=== PATIENT | female | born 1965 | race Caucasian/White ===

== ENCOUNTER 2024-10-01 08:18 | Outpatient (AMB) | payer BC, SELFPAY ==
--- NOTE | 2024-10-01 08:28 | A.OFFVIS_ITS ---
Vital Signs 10/01/24 08:39 Height 5 ft 1 in Weight 225 lb 15.581 oz BMI 42.7 BP 124/90 H Blood Pressure Location Lt brachial Position Sitting Pulse 85 Pulse Source Pulse Oximeter Pulse Oximetry (%) 95 Oxygen Delivery Method Room Air Intake Visit Reasons: PSA/ATC med rec recieved Intake Note: Patient presents for PSA. Enbrel is working and scalp is clear. Pain in joints are under control Allergies No Known Allergies Allergy (Verified 10/01/24 08:35) HPI HPI PSA/ATC med rec recieved: Details: Well on current regimen. No recent flares or infections. PFSH Surgical History (Updated 10/01/24 @ 08:37 by SONIA Deshpande) H/O colectomy Family History (Updated 10/01/24 @ 08:38 by SONIA Deshpande) Father Cancer Mother Kidney failure Social History (Updated 10/01/24 @ 08:39 by SONIA Deshpande) Household Members: None Housing: House Alcohol intake: current Comment: OCC Patient Tobacco Use Status: Never used Tobacco Review of Systems Const All systems reviewed & are unremarkable except as noted in HPI and below Physical Exam Vital Signs: Last Vital Signs Pulse 85 10/01/24 08:39 BP 124/90 H 10/01/24 08:39 Pulse Ox 95 10/01/24 08:39 Oxygen Delivery Method Room Air 10/01/24 08:39 BMI result Body Mass Index 42.7 Const Other: General: Comfortable CVS: RRR Respiratory: clear to auscultation bilaterally. Good respiratory effort Skin: No lesions seen MSK: No tenderness of any joints. No synovitis. She has reduced mobility of bilateral wrists. Good range of motion of shoulders and elbows. Knee flexion right is 80 degrees and left is 90. Bilateral hypertrophy noted on knees. Reduced external rotation of bilateral hips. Assessment & Plan Assessment & Plan (1) Psoriatic arthritis: Comment: She has history of secondary treatment failure on Humira. Currently on Enbrel. In remission on Enbrel. Psoriasis and psoriatic arthritis is controlled. Code(s): L40.50 - Arthropathic psoriasis, unspecified Category: Medical Plan: Labs for disease and drug monitoring of high-risk medication ordered this visit. Patient prefers to do labs at a facility near her home. Continue Enbrel weekly subcutaneous injection autoinjector Immunizations: Patient will get flu shot and COVID-19 booster at her local pharmacy Return to clinic in 3 months (2) Other fpc (current) drug therapy: Code(s): Z79.899 - Other fpc (current) drug therapy Category: Medical Plan: See above Orders: Orders C Reactive Protein Today L40.50 - Arthropathic psoriasis, unspecified, Z79.899 - Other fpc (current) drug therapy T Spot TB Today L40.50 - Arthropathic psoriasis, unspecified, Z79.899 - Other intermodal customer service (current) drug therapy Complete Blood Count Auto Diff Today L40.50 - Arthropathic psoriasis, unspecified, Z79.899 - Other fpc (current) drug therapy Creatinine Today L40.50 - Arthropathic psoriasis, unspecified, Z79.899 - Other fpc (current) drug therapy Erythrocyte Sedimentation Rate Today L40.50 - Arthropathic psoriasis, unspecified, Z79.899 - Other fpc (current) drug therapy Alanine Aminotransferase 12/30/24 L40.50 - Arthropathic psoriasis, unspecified, Z79.899 - Other intermodal customer service (current) drug therapy Alanine Aminotransferase 03/25/26 L40.50 - Arthropathic psoriasis, unspecified, Z79.899 - Other intermodal customer service (current) drug therapy Erythrocyte Sedimentation Rate 12/30/24 L40.50 - Arthropathic psoriasis, unspecified, Z79.899 - Other fpc (current) drug therapy Erythrocyte Sedimentation Rate 06/28/25 L40.50 - Arthropathic psoriasis, unspecified, Z79.899 - Other fpc (current) drug therapy Erythrocyte Sedimentation Rate 12/25/25 L40.50 - Arthropathic psoriasis, unspecified, Z79.899 - Other fpc (current) drug therapy Erythrocyte Sedimentation Rate 06/23/26 L40.50 - Arthropathic psoriasis, unspecified, Z79.899 - Other fpc (current) drug therapy Aspartate Amino Transferase 03/30/25 L40.50 - Arthropathic psoriasis, unspecified, Z79.899 - Other intermodal customer service (current) drug therapy Aspartate Amino Transferase 06/28/25 L40.50 - Arthropathic psoriasis, unspecified, Z79.899 - Other intermodal customer service (current) drug therapy Aspartate Amino Transferase 09/26/25 L40.50 - Arthropathic psoriasis, unspecified, Z79.899 - Other intermodal customer service (current) drug therapy Aspartate Amino Transferase 12/25/25 L40.50 - Arthropathic psoriasis, unspecified, Z79.899 - Other fpc (current) drug therapy Aspartate Amino Transferase 03/25/26 L40.50 - Arthropathic psoriasis, unspecified, Z79.899 - Other fpc (current) drug therapy Aspartate Amino Transferase 06/23/26 L40.50 - Arthropathic psoriasis, u nspecified, Z79.899 - Other fpc (current) drug therapy C Reactive Protein 12/30/24 L40.50 - Arthropathic psoriasis, unspecified, Z79.899 - Other intermodal customer service (current) drug therapy C Reactive Protein 03/30/25 L40.50 - Arthropathic psoriasis, unspecified, Z79.899 - Other intermodal customer service (current) drug therapy C Reactive Protein 12/25/25 L40.50 - Arthropathic psoriasis, unspecified, Z79.899 - Other intermodal customer service (current) drug therapy C Reactive Protein 03/25/26 L40.50 - Arthropathic psoriasis, unspecified, Z79.899 - Other fpc (current) drug therapy Complete Blood Count Auto Diff Today L40.50 - Arthropathic psoriasis, unspecified, Z79.899 - Other fpc (current) drug therapy Complete Blood Count Auto Diff 12/30/24 L40.50 - Arthropathic psoriasis, unspecified, Z79.899 - Other fpc (current) drug therapy Complete Blood Count Auto Diff 12/25/25 L40.50 - Arthropathic psoriasis, unspecified, Z79.899 - Other intermodal customer service (current) drug therapy Complete Blood Count Auto Diff 06/23/26 L40.50 - Arthropathic psoriasis, unspecified, Z79.899 - Other intermodal customer service (current) drug therapy Creatinine 12/30/24 L40.50 - Arthropathic psoriasis, unspecified, Z79.899 - Other intermodal customer service (current) drug therapy Creatinine 06/28/25 L40.50 - Arthropathic psoriasis, unspecified, Z79.899 - Other fpc (current) drug therapy Creatinine 12/25/25 L40.50 - Arthropathic psoriasis, unspecified, Z79.899 - Other intermodal customer service (current) drug therapy Creatinine 03/25/26 L40.50 - Arthropathic psoriasis, unspecified, Z79.899 - Other intermodal customer service (current) drug therapy Creatinine 06/23/26 L40.50 - Arthropathic psoriasis, unspecified, Z79.899 - Other intermodal customer service (current) drug therapy Alanine Aminotransferase Today L40.50 - Arthropathic psoriasis, unspecified, Z79.899 - Other intermodal customer service (current) drug therapy Aspartate Amino Transferase Today L40.50 - Arthropathic psoriasis, unspecified, Z79.899 - Other fpc (current) drug therapy Hepatitis B,C Profile Today L40.50 - Arthropathic psoriasis, unspecified, Z79.899 - Other intermodal customer service (current) drug therapy Alanine Aminotransferase Today L40.50 - Arthropathic psoriasis, unspecified, Z79.899 - Other fpc (current) drug therapy Alanine Aminotransferase 03/30/25 L40.50 - Arthropathic psoriasis, unspecified, Z79.899 - Other intermodal customer service (current) drug therapy Alanine Aminotransferase 06/28/25 L40.50 - Arthropathic psoriasis, unspecified, Z79.899 - Other intermodal customer service (current) drug therapy Alanine Aminotransferase 09/26/25 L40.50 - Arthropathic psoriasis, unspecified, Z79.899 - Other fpc (current) drug therapy Alanine Aminotransferase 12/25/25 L40.50 - Arthropathic psoriasis, unspecified, Z79.899 - Other intermodal customer service (current) drug therapy Alanine Aminotransferase 06/23/26 L40.50 - Arthropathic psoriasis, unspecified, Z79.899 - Other intermodal customer service (current) drug therapy Erythrocyte Sedimentation Rate Today L40.50 - Arthropathic psoriasis, unspecified, Z79.899 - Other fpc (current) drug therapy Erythrocyte Sedimentation Rate 03/30/25 L40.50 - Arthropathic psoriasis, unspecified, Z79.899 - Other fpc (current) drug therapy Erythrocyte Sedimentation Rate 09/26/25 L40.50 - Arthropathic psoriasis, unspecified, Z79.899 - Other fpc (current) drug therapy Erythrocyte Sedimentation Rate 03/25/26 L40.50 - Arthropathic psoriasis, unspecified, Z79.899 - Other fpc (current) drug therapy Aspartate Amino Transferase Today L40.50 - Arthropathic psoriasis, unspecified, Z79.899 - Other fpc (current) drug therapy Aspartate Amino Transferase 12/30/24 L40.50 - Arthropathic psoriasis, unspecified, Z79.899 - Other intermodal customer service (current) drug therapy C Reactive Protein Today L40.50 - Arthropathic psoriasis, unspecified, Z79.899 - Other intermodal customer service (current) drug therapy C Reactive Protein 06/28/25 L40.50 - Arthropathic psoriasis, unspecified, Z79.899 - Other intermodal customer service (current) drug therapy C Reactive Protein 09/26/25 L40.50 - Arthropathic psoriasis, unspecified, Z79.899 - Other fpc (current) drug therapy C Reactive Protein 06/23/26 L40.50 - Arthropathic psoriasis, unspecified, Z79.899 - Other fpc (current) drug therapy Complete Blood Count Auto Diff 03/30/25 L40.50 - Arthropathic psoriasis, unspecified, Z79.899 - Other intermodal customer service (current) drug therapy Complete Blood Count Auto Diff 06/28/25 L40.50 - Arthropathic psoriasis, unspecified, Z79.899 - Other intermodal customer service (current) drug therapy Complete Blood Count Auto Diff 09/26/25 L40.50 - Arthropathic psoriasis, unspecified, Z79.899 - Other intermodal customer service (current) drug therapy Complete Blood Count Auto Diff 03/25/26 L40.50 - Arthropathic psoriasis, unspecified, Z79.899 - Other intermodal customer service (current) drug therapy Creatinine Today L40.50 - Arthropathic psoriasis, unspecified, Z79.899 - Other intermodal customer service (current) drug therapy Creatinine 03/30/25 L40.50 - Arthropathic psoriasis, unspecified, Z79.899 - Other intermodal customer service (current) drug therapy Creatinine 09/26/25 L40.50 - Arthropathic psoriasis, unspecified, Z79.899 - Oth er intermodal customer service (current) drug therapy Medications: New etanercept (Enbrel SureClick) Inject SC weekly 50 mg subcut QWEEK 4 mL 2RF Coding Level of Care Code Est Pt Level 4 (44425) Complex EM visit Add On G2211 Diagnoses Psoriatic arthritis L40.50 Other intermodal customer service (current) drug therapy Z79.899
[2024-10-01 08:39] VITALS: BP 124/90; PULSE 85; O2SAT 95; BMI 42.7
== END 2024-10-01 09:06 | disposition home or self-care (01) ==
PROVIDERS: PCP Hospitalist; Visit Provider Internal Medicine Rheumatology
DX: L40.50 Arthropathic psoriasis, unspecified (principal); Z79.899 Other long term (current) drug therapy
CPT/HCPCS: 99214

== ENCOUNTER 2024-12-31 08:12 | Outpatient (AMB) | payer BC, SELFPAY ==
[2024-12-31 08:15] VITALS: BP 110/80; PULSE 93; O2SAT 97; BMI 41.2
--- NOTE | 2024-12-31 08:15 | MHC.OFFVIS ---
Vital Signs 12/31/24 08:15 Height 5 ft 1 in Weight 218 lb 4.122 oz BMI 41.2 BP 110/80 Pulse 93 Pulse Source Pulse Oximeter Pulse Oximetry (%) 97 Oxygen Delivery Method Room Air Intake Visit Reasons: 3 mo f/u Intake Note: Patient presents for PSA follow up. Crimper Operator Required: No Accompanied by: Self / Same As Patient Allergies No Known Allergies Allergy (Verified 12/31/24 08:20) HPI HPI 3 mo f/u: Details: Doing well. NO joint swelling, stiffness or infections. PFSH Surgical History H/O colectomy Family History Father Cancer Mother Kidney failure Social History Household Members: None Housing: House Alcohol intake: current Comment: OCC Patient Tobacco Use Status: Never used Tobacco Review of Systems Const All systems reviewed & are unremarkable except as noted in HPI and below Physical Exam Vital Signs: Last Vital Signs Pulse 93 12/31/24 08:15 BP 110/80 12/31/24 08:15 Pulse Ox 97 12/31/24 08:15 Oxygen Delivery Method Room Air 12/31/24 08:15 BMI result Body Mass Index 41.2 Const Other: General: Comfortable CVS: RRR Respiratory: clear to auscultation bilaterally. Good respiratory effort Skin: No lesions seen MSK: No tenderness of any joints. No synovitis. She has reduced mobility of bilateral wrists. Good range of motion of shoulders and elbows. Knee flexion right is 80 degrees and left is 90. Bilateral hypertrophy noted on knees. Reduced external rotation of bilateral hips. Assessment & Plan Assessment & Plan (1) Psoriatic arthritis: Comment: She has history of secondary treatment failure on Humira. Currently on Enbrel. In remission on Enbrel. Psoriasis and psoriatic arthritis is controlled. Code(s): L40.50 - Arthropathic psoriasis, unspecified Category: Medical Plan: Labs for disease and drug monitoring of high-risk medication done last week. Requested lab results from [facility] Continue Enbrel weekly subcutaneous injection autoinjector Return to clinic in 3 months (2) Other long-term (current) drug therapy: Code(s): Z79.899 - Other long-term (current) drug therapy Category: Medical Plan: See above Medications: Refilled etanercept Inject once weekly subcutaneous 50 mg subcut QWEEK 4 mL 2RF Coding Level of Care Code Est Pt Level 4 (48598) Complex EM visit Add On G2211 Diagnoses Psoriatic arthritis L40.50 Other intermission coordinator (current) drug therapy Z79.899
--- OUTSIDE RECORDS SUMMARY | 2024-12-31 08:29 | XMS_ITS ---
Author Organization [facility] Address Unknown Allergies, Adverse Reactions, Alerts Substance Reaction Status Noted Date Resolved Date Ciprofloxacin active 01/08/2016 Problems Problem Status Start Date End Date ENTEROCOLITIS DUE TO CLOSTRI DIUM DIFFICILE (Primary) (A04.7 - ICD-10-CM) ACTIVE 01/04/2016 ACQUIRED ABSENCE OF OTHER SP ECIFIED PARTS OF DIGESTIVE TRACT (Z90.49 - ICD-10-CM) ACTIVE 01/04/2016 ENCOUNTER FOR OTHER SPECIFIE D SURGICAL AFTERCARE (Z48.89 - ICD-10-CM) ACTIVE 01/04/2016 UNSPECIFIED LACK OF COORDINATION (R27.9 - ICD-10-CM) A CTIVE 01/04/2016 DIFFICULTY IN WALKING, NOT E LSEWHERE CLASSIFIED (R26.2 - ICD-10-CM) ACTIVE 01/04/2016 URINARY TRACT INFECTION, SIT E NOT SPECIFIED (N39.0 - ICD-10-CM) ACTIVE 01/17/2016 ACUTE SYSTOLIC (CONGESTIVE) HEART FAILURE (I50.21 - ICD-10-CM) ACTIVE 01/04/2016 MAJOR DEPRESSIVE DISORDER, R ECURRENT SEVERE WITHOUT PSYCHOTIC FEATURES (F33.2 - ICD-10-CM) ACTIVE 01/04/2016 Encounters Encounter Performer Performer Role Encounter Diagnoses Location Date Discharge - Discharged / Transferred to home under care of organized home health service organization - Private home/apt. with home health services [facility] 01/04/2016 03:00 pm EST - 01/30/2016 03:10 pm EDT Immunizations Vaccine Date Influenza Pneumococcal Polysaccharide Vaccine (PPS V23) Social History
--- OUTSIDE RECORDS SUMMARY | 2024-12-31 08:30 | XMS_ITS | Patient Health Record ---
Author Organization [facility] Address [address] 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 Name Role Phone MARY JOYCE Primary Care Provider JimmyemilyToro toledo Unavailable [phone] Allergies Allergen (clinical drug ingredient) Drug/Non Drug Allergy documented on EMR Reaction Allergy Type Onset Date Status NKDA (uncoded) Unknown Allergy Activ e Results Component Value Reference Range Notes TSH+Free T4 Reviewed date:11/28/2024 02:49:19 PM Interpretation: Performing Lab:[facility] [place], [address], [place], Phone - [phone], Director - [facility] Notes/Report: Test(s) 332502-Ssvqcfnmouody Acid, Serum was developed and its performance characteristics determined by [facility]. It has not been cleared or approved by the Food and Drug Administration. TSH-ICMA 1.3 Reference Range: Non- Adult 0.450-4.500 First Trimester 0.100-4.000 Second Trimester 0.200-4.000 Third Trimester 0.300-4.500 Free T4 by Dialysis/Dry Chain Worker 1.5 This test was developed and its performance characteristics determined by [facility]. It has not been cleared or approved by the Food and Drug Administration. Reference Range: Pubertal Children and Adults: 0.8 - 1.7 Homocyst(e)ine-768701 Reviewed date:11/28/2024 02:49:01 PM Interpretation: Performing Lab:[facility] [place], [address], [place], Phone - [phone], Director - Nuvia Notes/Report: Test(s) 013746-Yabfezmzfzycv Acid, Serum was developed and its performance characteristics determined by [facility]. It has not been cleared or approved by the Food and Drug Administration. Homocyst(e)ine 15.0 0.0-14.5 umol/L Methylmalonic Acid, Serum-70 6961 Reviewed date:11/28/2024 02:49:10 PM Interpretation: Performing Lab:[facility] [address], Phone - [phone], Director - [facility] Notes/Report: Test(s) 597086-Qseytvtkahvmf Acid, Serum was developed and its performance characteristics determined by [facility]. It has not been cleared or approved by the Food and Drug Administration. Methylmalonic Acid, Serum 163 0-378 nmol/L Hemoglobin R7e-689206 Reviewed date:11/28/2024 02:49:30 PM Interpretation: Performing Lab:[facility] [address], Phone - [phone], Director - [facility] Notes/Report: Test(s) 353540-Hpzzntkgbfdjp Acid, Serum was developed and its performance characteristics determined by [facility]. It has not been cleared or approved by the Food and Drug Administration. Hemoglobin A1c 5.7 4.8-5.6 % . Prediabetes: 5.7 - 6.4 Diabetes: >6.4 Glycemic control for adults with diabetes: <7.0 Vitamin B12 and Folate-26582 0 Reviewed date:11/28/2024 02:48:50 PM Interpretation: Performing Lab:[facility] [address], Phone - [phone], Director - [facility] Notes/Report: Test(s) 926679-Afhfsxloyjevk Acid, Serum was developed and its performance characteristics determined by [facility]. It has not been cleared or approved by the Food and Drug Administration. Vitamin B12 574 777-6848 pg/mL Folate (Folic Acid), Serum 14.2 >3.0 ng/mL A serum folate concentration of less than 3.1 ng/mL is considered to represent clinical deficiency. Lipid Panel-828364 (Not yet reviewed by provider) Interpretation: Performing Lab:[facility] [address], Phone - [phone], Director - [facility] Notes/Report: Test(s) 398567-Epcgpqdnaoxxr Acid, Serum was developed and its performance characteristics determined by [facility]. It has not been cleared or approved by the Food and Drug Administration. Cholesterol, Total 262 100-199 mg/dL Triglycerides 133 0-149 mg/dL HDL Cholesterol 78 >39 mg/dL VLDL Cholesterol Delio 23 5-40 mg/dL LDL Chol Calc ([facility]) 161 0-99 mg/dL MG MAMMO DIGITAL SCREENING W JESU ANGELICA Reviewed date:12/10/2024 03:24:59 PM Interpretation: Performing Lab: Notes/Report: Note See Note [facility], a member of [facility] Patient Name: MARY ALICE BERNAL Date of : 1965 Reason for Exam: Exam Date: 12/10/2024 [id number] EST Report Status: Final Ordering Provider: SELF REFERRAL [facility]PL PCP: MARY JOYCE CLINICAL: 59 years o ld, Female, routine annual exam. COMPARISON: 4, 11/23/2022, 11/17/2021, 11/16/2020 and 03/04/2019 TECHNIQUE: Bilateral MLO and CC views were obtained digitally with 3-D mammogram (digital breast tomosynthesis). Computer-aided detection was utilized in evaluation of this exam (CAD). FINDINGS: There is no evidence of suspicious mass or architectural distortion. No worrisome calcifications are evident. There has been no significant change from prior exam(s). BREAST DENSITY: A - The breasts are almost entirely fatty. IMPRESSION: No evidence of breas t malignancy. BI-RADS CATEGORY: 1 - NEGATIVE RECOMMENDATION: Screening bilateral mammogram is recommended in 1 year. Mammo Location: [facility], [address] [place] [address], [address], . -------- FINAL REPOR T -------- Dictated By: Jessica Veliz Dictated Date: 12/10/2024 11:39 ET Assigned Physician: Jessica Veliz Reviewed and Electronically Signed By: Jessica Veliz Signed Date: 025 11:41 ET Workstation ID: [id number] Transcribed By: Self Edit Transcribed Date: 12/10/2024 11:39 ET Albumin/Creatinine Ratio,Uri ne-122286 Reviewed date:03/22/2024 02:34:49 PM Interpretation: Performing Lab:[facility] [place], [address] [place] [address], Phone - [phone], Director - MDRajy Notes/Report: Creatinine, Urine 84.3 Not Estab. mg/dL Albumin, Urine 7.3 Not Estab. ug/mL Alb/Creat Ratio 9 0-29 mg/g creat Normal: 0 - 29 Moderately increased: 30 - 300 Severely increased: >300 Comp. Metabolic Panel (14)-3 24116 Reviewed date:03/25/2024 06:03:26 AM Interpretation: Performing Lab:[facility] [place], [address] [place] [address], Phone - [phone], Director - Damariy Notes/Report: Glucose 95 70-99 mg/dL BUN 16 6-24 mg/dL Creatinine 1.06 0.57-1.00 mg/dL eGFR 61 >59 mL/min/1.73 BUN/Creatinine Ratio 15 9-23 Sodium 140 134-144 mmol/L Potassium 4.3 3.5-5.2 mmol/L Chloride 100 96-106 mmol/L Anion Gap 17.0 10.0-18.0 mmol/L Carbon Dioxide, Total 23 20-29 mmol/L Calcium 9.5 8.7-10.2 mg/dL Protein, Total 7.2 6.0-8.5 g/dL Albumin 4.5 3.8-4.9 g/dL Globulin, Total 2.7 1.5-4.5 g/dL A/G Ratio 1.7 1.2-2.2 Bilirubin, Total 0.4 0.0-1.2 mg/dL Alkaline Phosphatase 101 44-121 IU/L AST (SGOT) 23 0-40 IU/L ALT (SGPT) 25 0-32 IU/L LP+Non-HDL Cholesterol-21187 5 Reviewed date:03/25/2024 10:41:09 AM Interpretation: Performing Lab:[facility] [place], [facility], Phone - [phone], Director - Damariy Notes/Report: Cholesterol, Total 265 100-199 mg/dL Triglycerides 116 0-149 mg/dL HDL Cholesterol 100 >39 mg/dL VLDL Cholesterol Delio 20 5-40 mg/dL LDL Chol Calc (NIH) 145 0-99 mg/dL Non-HDL Cholesterol 165 0-129 mg/dL Albumin/Creatinine Ratio,Uri ne-332209 Reviewed date:03/24/2024 09:35:28 PM Interpretation: Performing Lab:[facility] [place], [address] [place] [address], Phone - [phone], Director - MDJodry Notes/Report: Creatinine, Urine TNP Test not p erformed. No specimen received. Albumin, Urine TNP Test not perf ormed Hgb A1c with eAG Estimation- 228651 Reviewed date:03/25/2024 10:39:16 AM Interpretation: Performing Lab:[facility], [address] [place] [address], Phone - [phone], Director - MDJodry Notes/Report: Hemoglobin A1c 5.9 4.8-5.6 % . Prediabetes: 5.7 - 6.4 Diabetes: >6.4 Glycemic control for adults with diabetes: <7.0 Estim. Avg Glu (eAG) 123 CBC, Platelet, No Differenti al-660230 Reviewed date:03/25/2024 10:16:58 AM Interpretation: Performing Lab:[facility] [place], [address] [place] [address], Phone - [phone], Director - MDJodry Notes/Report: WBC 6.7 3.4-10.8 x10E3/uL RBC 4.94 3.77-5.28 x10E6/uL Hemoglobin 12.7 11.1-15.9 g/dL Hematocrit 39.0 34.0-46.6 % MCV 79 79-97 fL MCH 25.7 26.6-33.0 pg MCHC 32.6 31.5-35.7 g/dL RDW 16.1 11.7-15.4 % Platelets 227 150-450 x10E3/uL Ferritin-254539 Reviewed date:03/25/2024 06:01:38 AM Interpretation: Performing Lab:[facility] [place], [address] [place] [address], Phone - [phone], Director - MDJodry Notes/Report: Ferritin 24 15-150 ng/mL Request Problem TNP Test not performed. No specimen received. TEST: [id number] Albumin/Creatinine Ratio,Urine Iron and TIBC-385203 Reviewed date:03/25/2024 06:01:49 AM Interpretation: Performing Lab:[facility] [place], [address], [place], Phone - [phone], Director - Nuvia Notes/Report: Iron Bind.Cap.(TIBC) 407 250-450 ug/dL UIBC 252 131-425 ug/dL Iron 155 27-159 ug/dL Iron Saturation 38 15-55 % Reason For Referral No Information Medications Medication SIG (Take, Route, Frequency, Duration) Notes Start Date End Date Status Cinnamon Plus Chromium 200-1000 MCG-MG as directed Orally 02/07/2018 Active Niacin 500 MG 1 tablet with food Orally Once a day for 30 day(s) 02/07/2018 Not-Taking Calcium 600 MG 1 tablet with meals Orally Twice a day for 30 day(s) 02/07/2018 Active Garcinia Cambogia-Chromium 500-200 MG-MCG as directed Orally 02/07/2018 Not-Takin g Bactrim DS 800-160 MG 1 tablet Orally Tw ice a day for 3 day(s) 04/09/2021 Not-Taking Enbrel 50 MG/ML 1 mL Subcutaneous Active Humira Not-Taking Sertraline HCl 25 MG TAKE 1 TABLET BY [facility] ONCE DAILY WITH 50 MG TABLET 90 for 90 Active Sertraline HCl 50 MG TAKE 1 TABLET ONCE DAILY for 90 Active Ondansetron 4 MG 1 tablet on the tong ue and allow to dissolve Orally Once a day as needed for 90 days 02/07/2018 Active Mometasone Furoate 0.1 % 1 application Externally Once a day for 30 day(s) Active Hydrocortisone 2.5 % 1 application Externally Twice a day for 30 day(s) 10/27/2020 Active Magnesium Oxide 400 MG 1 tablet as neede d Orally Once a day for 30 day(s) 02/07/2018 Active Folic Acid 400 MCG 1 tablet Orally Once a day for 30 day(s) 02/07/2018 Active Biotin 5000 MCG 1 capsule Orally Onc e a day for 30 day(s) 02/07/2018 Active Immunizations Vaccine Route Administration Date Status Comme nts COVID Moderna Unknown 11/12/2020 Administered COVID Moderna Unknown 12/10/2020 Administered COVID Moderna Unknown 11/18/2021 Administered Flublok 98162 IM Intramuscular 11/14/2024 Administered Fluzone QD IM Intramuscular 11/21/2022 Administered Influenza, seasonal, injectable, preservative free, 3 yrs and above Unknown 09/20/2017 Administered Tdap Unknown 09/12/2016 Administered Social History Tobacco Use: Social History Observation Description Date Details (start date - stop date) Never Smoker NA - NA Tobacco Use/Smoking Question Answer Notes Are you a nonsmoker Alcohol Screen (Audit-C) Question Answer Notes Did you have a drink containing alcohol in the p ast year? No Points 0 Interpretation Negative Problems Problem Type SNOMED Code ICD Code Onset Dates Problem Status W/U Status Risk Notes Problem Iron deficiency anemia (08300042) Iron deficiency anemia, unspecified (D50.9) Active confirmed Problem Vitamin D deficiency (50964127) Vitamin D deficiency, unspecified (E55.9) Active confirmed Problem Morbid obesity (469482882) Morbid (severe) obesity due to excess calories (E66.01) Active confirmed Problem Mixed hyperlipidemia (045415059) Mixed hyperlipidemia (E78.2) Active confirmed Problem Major depression, single episode (67932036) Major depressive disorder, single episode, unspecified (F32.9) Active confirmed Problem Generalized anxiety disorder (12198930) Generalized anxiety disorder (F41.1) Active confirmed Problem Essential hypertension (68394009) Essential (primary) hypertension (I10) Active confirmed Problem Psoriasis (5899424) Psoriasis, unspecified (L40.9) Active confirmed Problem Idiopathic urticaria (74989913) Idiopathic urticaria (L50.1) Active confirmed Problem History of excision of intestinal structure (663080840) Acquired absence of other specified parts of digestive tract (Z90.49) Active confirmed Vital Signs Heart Rate 98 /min 11/14/2024 Temperature 97.4 degrees Fahrenheit 11/14/2024 Oximetry 97 % 11/14/2024 Blood pressure diastolic 78 mm Hg 11/14/2024 Height 62 in 11/14/2024 Blood pressure systolic 120 mm Hg 11/14/2024 Weight 222.2 lbs 11/14/2024 BMI 40.64 kg/m2 11/14/2024 Encounters Encounter Location Date Provider Diagnosis [facility] [address] [address] 03/22/2024 MARY JOYCE Essential (primary) hypertension I10 ; Major depressive disorder, single episode, unspecified F32.9 ; Psoriasis, unspecified L40.9 ; Morbid (severe) obesity due to excess calories E66.01 ; Impaired fasting glucose R73.01 and Mixed hyperlipidemia E78.[address] [address] 11/14/2024 [facility] Essential (primary) hypertension I10 ; Annual visit for general adult medical examination without abnormal findings Z00.00 ; Morbid (severe) obesity due to excess calories E66.01 ; Major depressive disorder, single episode, unspecified F32.9 ; Impaired fasting glucose R73.01 ; Mixed hyperlipidemia E78.2 ; Psoriasis, unspecified L40.9 ; Fatigue, unspecified type R53.83 ; Encounter for immunization Z23 and Other specified abdominal hernia without obstruction or gangrene K45.[address] [address] 10/21/[address] [address] 10/21/[address] [address] 11/15/2024 [facility] Assessments Encounter Date Diagnosis (ICD Code) Assessment Notes Treatment Notes Treatment Clinical Notes Section Notes 03/22/2024 Major depressive disorder, single episode, unspecified (ICD-10 - F32.9) Ms. Bernal is a 58 year old lady with depression and diverticulitis here for follow up. Plan is as follows Hypertension. Blood pressure well controlled on diet Morbid obesity. Advised dietary restrictions and regimental exercise. Goal is to lose 5-6 lbs a month. REAGAN/MDD. Mood stable on current regimen. Iron deficiency anemia. Take iron supplements atleast once a day. Impaired fasting glucose. A1c is 5.9. Diet restrictions discussed and encouraged to lose weight Mixed hyperlipidemia. Total cholesterol is 265, triglycerides is 116, HDL is 100 and LDL is 145. Diet changes discussed with the patient. Recheck lipid panel in 6 months Psoriatic arthritis. She follows up with Dr. Jimenes and it is under control. Scribe services used to formulate this note under HIPAA compliance and under [place] law mandated for scribe services. Patient aware of service. Verbal consent and written consent taken from the patient. Patient understands and verbalizes understanding of the scribes services and all questions answered regarding scribes services. Patient agrees to use of scribes services. 03/22/2024 Essential (primary) hypertension (ICD-10 - I10) Ms. Bernal is a 58 year old lady with depression and diverticulitis here for follow up. Plan is as follows Hypertension. Blood pressure well controlled on diet Morbid obesity. Advised dietary restrictions and regimental exercise. Goal is to lose 5-6 lbs a month. REAGAN/MDD. Mood stable on current regimen. Iron deficiency anemia. Take iron supplements atleast once a day. Impaired fasting glucose. A1c is 5.9. Diet restrictions discussed and encouraged to lose weight Mixed hyperlipidemia. Total cholesterol is 265, triglycerides is 116, HDL is 100 and LDL is 145. Diet changes discussed with the patient. Recheck lipid panel in 6 months Psoriatic arthritis. She follows up with Dr. Jimenes and it is under control. Scribe services used to formulate this note under HIPAA compliance and under [place] law mandated for scribe services. Patient aware of service. Verbal consent and written consent taken from the patient. Patient understands and verbalizes understanding of the scribes services and all questions answered regarding scribes services. Patient agrees to use of scribes services. 11/14/2024 Essential (primary) hypertension (ICD-10 - I10) Ms. Bernal is a 58 year old lady with depression and diverticulitis here for annual physical examination. Plan is as follows Hypertension. -Blood pressure well controlled on diet. Continue on the same regimen. EKG is done in the office today, HR of 79bpm, Sinus rhythm, No ST elevation/depress ion. No BBB. normal intervals. Morbid obesity. -Advised dietary restrictions and regimental exercise. Goal is to lose 5-6 lbs a month. REAGAN/MDD. -Mood stable on current regimen. She prefers not to increase the dosage now as she would prefer lifetsyle modification first. However, she will update us if no improvement in her mood and then we will adjust medication based on that. Iron deficiency anemia. -Take iron supplements atleast once a day. Check CBC Impaired fasting glucose. - A1c is 5.9. Diet restrictions discussed and encouraged to lose weight. check a1c Mixed hyperlipidemia. - Total cholesterol is 265, triglycerides is 116, HDL is 100 and LDL is 145. Diet changes discussed with the patient. check lipid panell. Psoriatic arthritis. She follows up with Dr. Jimenes and it is under control. fatigue: - we will check bloodwork to r/o seondary causes. Hernia: - She was seen by GI before, U/S has been performed and showed three hernia. Surgery was recommended but she deferred it for now. recommended to touch base with GI surgeon again. She is UTD on vaccinations. Flu vaccine is administered today.She is upcoming Mammogram. DEXA was done in 2022 which it was normal. Screening Bloodwork before next appt General concerns have been discussed I have rendered the services for this patient under direct supervision of Dr. Joyce, who did not see the patient but was available upon request 11/14/2024 Annual visit for general adult medical examination without abnormal findings (ICD-10 - Z00.00) Ms. Bernal is a 58 year old lady with depression and diverticulitis here for annual physical examination. Plan is as follows Hypertension. -Blood pressure well controlled on diet. Continue on the same regimen. EKG is done in the office today, HR of 79bpm, Sinus rhythm, No ST elevation/depress ion. No BBB. normal intervals. Morbid obesity. -Advised dietary restrictions and regimental exercise. Goal is to lose 5-6 lbs a month. REAGAN/MDD. -Mood stable on current regimen. She prefers not to increase the dosage now as she would prefer lifetsyle modification first. However, she will update us if no improvement in her mood and then we will adjust medication based on that. Iron deficiency anemia. -Take iron supplements atleast once a day. Check CBC Impaired fasting glucose. - A1c is 5.9. Diet restrictions discussed and encouraged to lose weight. check a1c Mixed hyperlipidemia. - Total cholesterol is 265, triglycerides is 116, HDL is 100 and LDL is 145. Diet changes discussed with the patient. check lipid panell. Psoriatic arthritis. She follows up with Dr. Jimenes and it is under control. fatigue: - we will check bloodwork to r/o seondary causes. Hernia: - She was seen by GI before, U/S has been performed and showed three hernia. Surgery was recommended but she deferred it for now. recommended to touch base with GI surgeon again. She is UTD on vaccinations. Flu vaccine is administered today.She is upcoming Mammogram. DEXA was done in 2022 which it was normal. Screening Bloodwork before next appt General concerns have been discussed I have rendered the services for this patient under direct supervision of Dr. Joyce, who did not see the patient but was available upon request 11/14/2024 Morbid (severe) obesity due to excess calories (ICD-10 - E66.01) Ms. Bernal is a 58 year old lady with depression and diverticulitis here for annual physical examination. Plan is as follows Hypertension. -Blood pressure well controlled on diet. Continue on the same regimen. EKG is done in the office today, HR of 79bpm, Sinus rhythm, No ST elevation/depress ion. No BBB. normal intervals. Morbid obesity. -Advised dietary restrictions and regimental exercise. Goal is to lose 5-6 lbs a month. REAGAN/MDD. -Mood stable on current regimen. She prefers not to increase the dosage now as she would prefer lifetsyle modification first. However, she will update us if no improvement in her mood and then we will adjust medication based on that. Iron deficiency anemia. -Take iron supplements atleast once a day. Check CBC Impaired fasting glucose. - A1c is 5.9. Diet restrictions discussed and encouraged to lose weight. check a1c Mixed hyperlipidemia. - Total cholesterol is 265, triglycerides is 116, HDL is 100 and LDL is 145. Diet changes discussed with the patient. check lipid panell. Psoriatic arthritis. She follows up with Dr. Jimenes and it is under control. fatigue: - we will check bloodwork to r/o seondary causes. Hernia: - She was seen by GI before, U/S has been performed and showed three hernia. Surgery was recommended but she deferred it for now. recommended to touch base with GI surgeon again. She is UTD on vaccinations. Flu vaccine is administered today.She is upcoming Mammogram. DEXA was done in 2022 which it was normal. Screening Bloodwork before next appt General concerns have been discussed I have rendered the services for this patient under direct supervision of Dr. Joyce, who did not see the patient but was available upon request 03/22/2024 Psoriasis, unspecified (ICD-10 - L40.9) Ms. Bernal is a 58 year old lady with depression and diverticulitis here for follow up. Plan is as follows Hypertension. Blood pressure well controlled on diet Morbid obesity. Advised dietary restrictions and regimental exercise. Goal is to lose 5-6 lbs a month. REAGAN/MDD. Mood stable on current regimen. Iron deficiency anemia. Take iron supplements atleast once a day. Impaired fasting glucose. A1c is 5.9. Diet restrictions discussed and encouraged to lose weight Mixed hyperlipidemia. Total cholesterol is 265, triglycerides is 116, HDL is 100 and LDL is 145. Diet changes discussed with the patient. Recheck lipid panel in 6 months Psoriatic arthritis. She follows up with Dr. Jimenes and it is under control. Scribe services used to formulate this note under HIPAA compliance and under [place] law mandated for scribe services. Patient aware of service. Verbal consent and written consent taken from the patient. Patient understands and verbalizes understanding of the scribes services and all questions answered regarding scribes services. Patient agrees to use of scribes services. 03/22/2024 Morbid (severe) obesity due to excess calories (ICD-10 - E66.01) Ms. Bernal is a 58 year old lady with depression and diverticulitis here for follow up. Plan is as follows Hypertension. Blood pressure well controlled on diet Morbid obesity. Advised dietary restrictions and regimental exercise. Goal is to lose 5-6 lbs a month. REAGAN/MDD. Mood stable on current regimen. Iron deficiency anemia. Take iron supplements atleast once a day. Impaired fasting glucose. A1c is 5.9. Diet restrictions discussed and encouraged to lose weight Mixed hyperlipidemia. Total cholesterol is 265, triglycerides is 116, HDL is 100 and LDL is 145. Diet changes discussed with the patient. Recheck lipid panel in 6 months Psoriatic arthritis. She follows up with Dr. Jimenes and it is under control. Scribe services used to formulate this note under HIPAA compliance and under [place] law mandated for scribe services. Patient aware of service. Verbal consent and written consent taken from the patient. Patient understands and verbalizes understanding of the scribes services and all questions answered regarding scribes services. Patient agrees to use of scribes services. 11/14/2024 Major depressive disorder, single episode, unspecified (ICD-10 - F32.9) Ms. Bernal is a 58 year old lady with depression and diverticulitis here for annual physical examination. Plan is as follows Hypertension. -Blood pressure well controlled on diet. Continue on the same regimen. EKG is done in the office today, HR of 79bpm, Sinus rhythm, No ST elevation/depress ion. No BBB. normal intervals. Morbid obesity. -Advised dietary restrictions and regimental exercise. Goal is to lose 5-6 lbs a month. REAGAN/MDD. -Mood stable on current regimen. She prefers not to increase the dosage now as she would prefer lifetsyle modification first. However, she will update us if no improvement in her mood and then we will adjust medication based on that. Iron deficiency anemia. -Take iron supplements atleast once a day. Check CBC Impaired fasting glucose. - A1c is 5.9. Diet restrictions discussed and encouraged to lose weight. check a1c Mixed hyperlipidemia. - Total cholesterol is 265, triglycerides is 116, HDL is 100 and LDL is 145. Diet changes discussed with the patient. check lipid panell. Psoriatic arthritis. She follows up with Dr. Jimenes and it is under control. fatigue: - we will check bloodwork to r/o seondary causes. Hernia: - She was seen by GI before, U/S has been performed and showed three hernia. Surgery was recommended but she deferred it for now. recommended to touch base with GI surgeon again. She is UTD on vaccinations. Flu vaccine is administered today.She is upcoming Mammogram. DEXA was done in 2022 which it was normal. Screening Bloodwork before next appt General concerns have been discussed I have rendered the services for this patient under direct supervision of Dr. Joyce, who did not see the patient but was available upon request 11/14/2024 Impaired fasting glucose (ICD-10 - R73.01) Ms. Bernal is a 58 year old lady with depression and diverticulitis here for annual physical examination. Plan is as follows Hypertension. -Blood pressure well controlled on diet. Continue on the same regimen. EKG is done in the office today, HR of 79bpm, Sinus rhythm, No ST elevation/depress ion. No BBB. normal intervals. Morbid obesity. -Advised dietary restrictions and regimental exercise. Goal is to lose 5-6 lbs a month. REAGAN/MDD. -Mood stable on current regimen. She prefers not to increase the dosage now as she would prefer lifetsyle modification first. However, she will update us if no improvement in her mood and then we will adjust medication based on that. Iron deficiency anemia. -Take iron supplements atleast once a day. Check CBC Impaired fasting glucose. - A1c is 5.9. Diet restrictions discussed and encouraged to lose weight. check a1c Mixed hyperlipidemia. - Total cholesterol is 265, triglycerides is 116, HDL is 100 and LDL is 145. Diet changes discussed with the patient. check lipid panell. Psoriatic arthritis. She follows up with Dr. Jimenes and it is under control. fatigue: - we will check bloodwork to r/o seondary causes. Hernia: - She was seen by GI before, U/S has been performed and showed three hernia. Surgery was recommended but she deferred it for now. recommended to touch base with GI surgeon again. She is UTD on vaccinations. Flu vaccine is administered today.She is upcoming Mammogram. DEXA was done in 2022 which it was normal. Screening Bloodwork before next appt General concerns have been discussed I have rendered the services for this patient under direct supervision of Dr. Joyce, who did not see the patient but was available upon request 03/22/2024 Impaired fasting glucose (ICD-10 - R73.01) Ms. Bernal is a 58 year old lady with depression and diverticulitis here for follow up. Plan is as follows Hypertension. Blood pressure well controlled on diet Morbid obesity. Advised dietary restrictions and regimental exercise. Goal is to lose 5-6 lbs a month. REAGAN/MDD. Mood stable on current regimen. Iron deficiency anemia. Take iron supplements atleast once a day. Impaired fasting glucose. A1c is 5.9. Diet restrictions discussed and encouraged to lose weight Mixed hyperlipidemia. Total cholesterol is 265, triglycerides is 116, HDL is 100 and LDL is 145. Diet changes discussed with the patient. Recheck lipid panel in 6 months Psoriatic arthritis. She follows up with Dr. Jimenes and it is under control. Scribe services used to formulate this note under HIPAA compliance and under [place] law mandated for scribe services. Patient aware of service. Verbal consent and written consent taken from the patient. Patient understands and verbalizes understanding of the scribes services and all questions answered regarding scribes services. Patient agrees to use of scribes services. 03/22/2024 Mixed hyperlipidemia (ICD-10 - E78.2) Ms. Bernal is a 58 year old lady with depression and diverticulitis here for follow up. Plan is as follows Hypertension. Blood pressure well controlled on diet Morbid obesity. Advised dietary restrictions and regimental exercise. Goal is to lose 5-6 lbs a month. REAGAN/MDD. Mood stable on current regimen. Iron deficiency anemia. Take iron supplements atleast once a day. Impaired fasting glucose. A1c is 5.9. Diet restrictions discussed and encouraged to lose weight Mixed hyperlipidemia. Total cholesterol is 265, triglycerides is 116, HDL is 100 and LDL is 145. Diet changes discussed with the patient. Recheck lipid panel in 6 months Psoriatic arthritis. She follows up with Dr. Jimenes and it is under control. Scribe services used to formulate this note under HIPAA compliance and under [place] law mandated for scribe services. Patient aware of service. Verbal consent and written consent taken from the patient. Patient understands and verbalizes understanding of the scribes services and all questions answered regarding scribes services. Patient agrees to use of scribes services. 11/14/2024 Mixed hyperlipidemia (ICD-10 - E78.2) Ms. Bernal is a 58 year old lady with depression and diverticulitis here for annual physical examination. Plan is as follows Hypertension. -Blood pressure well controlled on diet. Continue on the same regimen. EKG is done in the office today, HR of 79bpm, Sinus rhythm, No ST elevation/depress ion. No BBB. normal intervals. Morbid obesity. -Advised dietary restrictions and regimental exercise. Goal is to lose 5-6 lbs a month. REAGAN/MDD. -Mood stable on current regimen. She prefers not to increase the dosage now as she would prefer lifetsyle modification first. However, she will update us if no improvement in her mood and then we will adjust medication based on that. Iron deficiency anemia. -Take iron supplements atleast once a day. Check CBC Impaired fasting glucose. - A1c is 5.9. Diet restrictions discussed and encouraged to lose weight. check a1c Mixed hyperlipidemia. - Total cholesterol is 265, triglycerides is 116, HDL is 100 and LDL is 145. Diet changes discussed with the patient. check lipid panell. Psoriatic arthritis. She follows up with Dr. Jimenes and it is under control. fatigue: - we will check bloodwork to r/o seondary causes. Hernia: - She was seen by GI before, U/S has been performed and showed three hernia. Surgery was recommended but she deferred it for now. recommended to touch base with GI surgeon again. She is UTD on vaccinations. Flu vaccine is administered today.She is upcoming Mammogram. DEXA was done in 2022 which it was normal. Screening Bloodwork before next appt General concerns have been discussed I have rendered the services for this patient under direct supervision of Dr. Joyce, who did not see the patient but was available upon request 11/14/2024 Psoriasis, unspecified (ICD-10 - L40.9) Ms. Bernal is a 58 year old lady with depression and diverticulitis here for annual physical examination. Plan is as follows Hypertension. -Blood pressure well controlled on diet. Continue on the same regimen. EKG is done in the office today, HR of 79bpm, Sinus rhythm, No ST elevation/depress ion. No BBB. normal intervals. Morbid obesity. -Advised dietary restrictions and regimental exercise. Goal is to lose 5-6 lbs a month. REAGAN/MDD. -Mood stable on current regimen. She prefers not to increase the dosage now as she would prefer lifetsyle modification first. However, she will update us if no improvement in her mood and then we will adjust medication based on that. Iron deficiency anemia. -Take iron supplements atleast once a day. Check CBC Impaired fasting glucose. - A1c is 5.9. Diet restrictions discussed and encouraged to lose weight. check a1c Mixed hyperlipidemia. - Total cholesterol is 265, triglycerides is 116, HDL is 100 and LDL is 145. Diet changes discussed with the patient. check lipid panell. Psoriatic arthritis. She follows up with Dr. Jimenes and it is under control. fatigue: - we will check bloodwork to r/o seondary causes. Hernia: - She was seen by GI before, U/S has been performed and showed three hernia. Surgery was recommended but she deferred it for now. recommended to touch base with GI surgeon again. She is UTD on vaccinations. Flu vaccine is administered today.She is upcoming Mammogram. DEXA was done in 2022 which it was normal. Screening Bloodwork before next appt General concerns have been discussed I have rendered the services for this patient under direct supervision of Dr. Joyce, who did not see the patient but was available upon request 11/14/2024 Fatigue, unspecified type (ICD-10 - R53.83) Ms. Bernal is a 58 year old lady with depression and diverticulitis here for annual physical examination. Plan is as follows Hypertension. -Blood pressure well controlled on diet. Continue on the same regimen. EKG is done in the office today, HR of 79bpm, Sinus rhythm, No ST elevation/depress ion. No BBB. normal intervals. Morbid obesity. -Advised dietary restrictions and regimental exercise. Goal is to lose 5-6 lbs a month. REAGAN/MDD. -Mood stable on current regimen. She prefers not to increase the dosage now as she would prefer lifetsyle modification first. However, she will update us if no improvement in her mood and then we will adjust medication based on that. Iron deficiency anemia. -Take iron supplements atleast once a day. Check CBC Impaired fasting glucose. - A1c is 5.9. Diet restrictions discussed and encouraged to lose weight. check a1c Mixed hyperlipidemia. - Total cholesterol is 265, triglycerides is 116, HDL is 100 and LDL is 145. Diet changes discussed with the patient. check lipid panell. Psoriatic arthritis. She follows up with Dr. Jimenes and it is under control. fatigue: - we will check bloodwork to r/o seondary causes. Hernia: - She was seen by GI before, U/S has been performed and showed three hernia. Surgery was recommended but she deferred it for now. recommended to touch base with GI surgeon again. She is UTD on vaccinations. Flu vaccine is administered today.She is upcoming Mammogram. DEXA was done in 2022 which it was normal. Screening Bloodwork before next appt General concerns have been discussed I have rendered the services for this patient under direct supervision of Dr. Joyce, who did not see the patient but was available upon request 11/14/2024 Encounter for immunization (ICD-10 - Z23) Ms. Bernal is a 58 year old lady with depression and diverticulitis here for annual physical examination. Plan is as follows Hypertension. -Blood pressure well controlled on diet. Continue on the same regimen. EKG is done in the office today, HR of 79bpm, Sinus rhythm, No ST elevation/depress ion. No BBB. normal intervals. Morbid obesity. -Advised dietary restrictions and regimental exercise. Goal is to lose 5-6 lbs a month. REAGAN/MDD. -Mood stable on current regimen. She prefers not to increase the dosage now as she would prefer lifetsyle modification first. However, she will update us if no improvement in her mood and then we will adjust medication based on that. Iron deficiency anemia. -Take iron supplements atleast once a day. Check CBC Impaired fasting glucose. - A1c is 5.9. Diet restrictions discussed and encouraged to lose weight. check a1c Mixed hyperlipidemia. - Total cholesterol is 265, triglycerides is 116, HDL is 100 and LDL is 145. Diet changes discussed with the patient. check lipid panell. Psoriatic arthritis. She follows up with Dr. Jimnees and it is under control. fatigue: - we will check bloodwork to r/o seondary causes. Hernia: - She was seen by GI before, U/S has been performed and showed three hernia. Surgery was recommended but she deferred it for now. recommended to touch base with GI surgeon again. She is UTD on vaccinations. Flu vaccine is administered today.She is upcoming Mammogram. DEXA was done in 2022 which it was normal. Screening Bloodwork before next appt General concerns have been discussed I have rendered the services for this patient under direct supervision of Dr. Joyce, who did not see the patient but was available upon request 11/14/2024 Other specified abdominal hernia without obstruction or gangrene (ICD-10 - K45.8) Ms. Bernal is a 58 year old lady with depression and diverticulitis here for annual physical examination. Plan is as follows Hypertension. -Blood pressure well controlled on diet. Continue on the same regimen. EKG is done in the office today, HR of 79bpm, Sinus rhythm, No ST elevation/depress ion. No BBB. normal intervals. Morbid obesity. -Advised dietary restrictions and regimental exercise. Goal is to lose 5-6 lbs a month. REAGAN/MDD. -Mood stable on current regimen. She prefers not to increase the dosage now as she would prefer lifetsyle modification first. However, she will update us if no improvement in her mood and then we will adjust medication based on that. Iron deficiency anemia. -Take iron supplements atleast once a day. Check CBC Impaired fasting glucose. - A1c is 5.9. Diet restrictions discussed and encouraged to lose weight. check a1c Mixed hyperlipidemia. - Total cholesterol is 265, triglycerides is 116, HDL is 100 and LDL is 145. Diet changes discussed with the patient. check lipid panell. Psoriatic arthritis. She follows up with Dr. Jimenes and it is under control. fatigue: - we will check bloodwork to r/o seondary causes. Hernia: - She was seen by GI before, U/S has been performed and showed three hernia. Surgery was recommended but she deferred it for now. recommended to touch base with GI surgeon again. She is UTD on vaccinations. Flu vaccine is administered today.She is upcoming Mammogram. DEXA was done in 2022 which it was normal. Screening Bloodwork before next appt General concerns have been discussed I have rendered the services for this patient under direct supervision of Dr. Joyce, who did not see the patient but was available upon request Plan Of Treatment Pending Test Test Name Order Date FERRITIN 08/12/2022 IRON & TIBC 08/12/2022 Lipid Panel-[id number] 11/14/2024 Future Test Test Name Order Date [id number] 03/22/2024 Lipid Panel-[id number] 03/22/2024 Basic Metabolic Panel [phone] 25-Hydroxyvitamin D LCMS D2+[id number] Hemoglobin A1c 03/22/2024 Next Appt Details Provider Name:Toro Marquezeyad mo, 11/12/2025 08:30:00 AM, [address] [place] [address], [phone], Insurance Providers Payer Name Payer Address Payer Phone Subscriber Number Group Number Insured Name Patient Relationship to Insured Coverage Start Date Coverage End Date [employer] [address] [place] [address] [phone] [id number] MARY ALICE BERNAL Self - patient is the insured 2 Medical (General) History Medical History History ICD Code Depression Diverticulitis and status post colectomy in [address] Dr Jimenes atypia on breast biopsy followed by [facility]geon Dr. 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
--- OUTSIDE RECORDS SUMMARY | 2024-12-31 08:30 | XMS_ITS | Clinical Summary ---
Author Organization [facility] Address [address] [place] [address] Care Team Providers Care Vehicle Return Associate Name Role Phone Adin Hoffman MD Primary Care Provider [phone] Allergies No known active allergies Medications adalimumab (Humira,CF, Pen) 40 mg/0.4 mL pen Inject 40mg (0.4 mL) into the skin once every other week. 2 each 2 06/09/2022 11:07 AM EDT 04/08/2022 Active sertraline (ZOLOFT) 100 mg tablet Take by mouth 1 (one) time each day. Active ondansetron (ZOFRAN) 4 mg tablet Take 4 each by mouth every 8 (eight) hours if needed. Active Encounters Date Type Department Care Team Description 12/10/2024 8:11 AM EST - 12/10/2024 11:59 PM [facility] [address] [phone] Encounter for screening mammogram for breast cancer Discharge Disposition: Home or Self Care from Last 3 Months Surgical History Surgery Date Site/Laterality Comments OTHER SURGICAL HISTORY december 2015 PROCEDURE: MN LAPS COLECTOMY TOT W/O PRCTECT W/ILEOST/ILEOPXTS; COMMENT: had ostomy reversed in may 2016 BREAST BIOPSY 04/06/2016 Left PROCEDURE: MN BX BREAST NEEDLE CORE W/O IMAGING GUIDANCE SPX; COMMENT: atypical ductal hyperplasia & lobular hyperplasia STEREOTACTIC BREAST BIOPSY 03/17/2016 Left PROCEDURE: STEREOTACTIC BREAST BIOPSY; COMMENT: ATH & ALH Medical History Medical History Date Comments History of diverticulitis 12/2015 DX:His tory of diverticulitis; COMMENT: 12/2015 S/p colectomy Atypical ductal hyperplasia of left breast 04/24/2019 DX:Atypical ductal hyperplas ia of left breast; COMMENT: 04/2016 s/p biopsy; and lobular hyperplasia Obesity (BMI 30-39.9) 12/20/2017 DX:Obesity (BMI 30-39.9) Depression 12/20/2017 DX:Depression Incisional hernia 12/20/2017 DX:Incisional hernia S/P colectomy 02/08/2016 DX:S/P colectomy ; COMMENT: Comments: perforated colon from diverticulitis and also had Cdiff in hosp and had illostomy and then reversal Vitamin D deficiency 12/20/2017 DX:Vitamin D deficiency Anxiety and depression 04/24/2019 DX:Anxiet y and depression Family History Medical History Relation Name Comments No Known Problems Brother Melanoma Father Breast cancer Maternal Grandmother at adv anced age Kidney failure Mother sepsis Leukemia Mother's side uncle Relation Name Status Comments Brother Father Maternal Grandmother Mother Mother's side uncle Alive Social History Tobacco Use Types Packs/Day Years Used Date Smoking Tobacco: Former Smokeless Tobacco: Never Alcohol Use Standard Drinks/Week Comments Yes 0 (1 standard drink = 0.6 oz pur e alcohol) Comments No Sex and Gender Information Value Date Recorded Sex Assigned at Not on file Legal Sex Female 9:34 AM EST Gender Identity Not on file Sexual Orientation Not on file Obstetrics History Plan of Treatment Health Maintenance Due Date Last Done Comments COVID-19 Vaccine (#1) 1971 Hepatitis B Vaccines (1 of 3 - 19+ 3-dose series) 1985 Cervical Cancer Screening: Pap Smear 1987 Pneumococcal Vaccine: 50+ Years (1 of 1 - PCV) 2016 Zoster Vaccines (1 of 2) 2016 Cholesterol Screening (Lipid Panel) 11/24/2021 Colorectal Cancer Screening: Colonoscopy 11/24/2021 Depression Screening 11/24/2021 HIV Screening 11/24/2021 Hepatitis C Screening 11/24/2021 Social Influencers of Health Screening 11/24/2021 Influenza Vaccine (#1) 2024 Hypertension/CHF/CAD Annual BMP Blood Test 12/10/2024 DTaP,Tdap,and Td Vaccines (2 - Td or Tdap) 09/12/2026 09/12/2016 Breast Cancer Screening 12/10/2026 12/10/19 25, 12/06/2023, 11/23/2022, Additional history exists HIB Vaccines Aged Out No longer eligi ble based on patient's age to complete this topic HPV Vaccines Aged Out No longer eligi ble based on patient's age to complete this topic Hepatitis A Vaccines Aged Out No long er eligible based on patient's age to complete this topic IPV Vaccines Aged Out No longer eligi ble based on patient's age to complete this topic MMR Vaccines Aged Out No longer eligi ble based on patient's age to complete this topic Meningococcal ACWY Vaccine Aged Out N o longer eligible based on patient's age to complete this topic Meningococcal B Vacine Aged Out No lo nger eligible based on patient's age to complete this topic Pneumococcal Vaccine: Pediatrics (0 to 5 Years) and At-Risk Patients (6 to 64 Years) Aged Out No longer eligible based on patient's age to complete this topic RSV Immunization Patients Under 20 months Aged Out No longer eligible based on patient's age to complete this topic Varicella Vaccines Aged Out No longer eligible based on patient's age to complete this topic Procedures Procedure Name Priority Date/Time Associated Diagnosis Comments MG MAMMO DIGITAL SCREENING W MUSHTAQ BILAT Routine 12/10/2024 9:03 AM EST Encounter for screening mammogram for breast cancer from Last 3 Months Results * MG Mammo Digital Screening w Mushtaq bilat (12/10/2024 9:03 AM EST) Anatomical Region Laterality Modality Breast Bilateral Mammography 12/10/2024 11:3 9 AM EST Impressions 12/10/2024 11:41 AM EST No evidence of breast malignancy. BI-RADS CATEGORY: 1 - NEGATIVE RECOMMENDATION: Screening bilateral mammogram is recommended in 1 year. Mammo Location: [facility], [address] [place] [address], [id number], . -------- FINAL REPORT -------- Dictated By: Jessica Veliz Dictated Date: 12/10/2024 11:39 ET Assigned Physician: Jessica Veliz Reviewed and Electronically Signed By: Jessica Veliz Signed Date: 12/10/2024 11:41 ET Workstation ID: [id number] Transcribed By: Self Edit Transcribed Date: 12/10/2024 11:39 ET Narrative 12/10/2024 11:41 AM EST CLINICAL: 59 years old, Female, routine annual exam. COMPARISON: 12/06/2023, 11/23/2022, 11/17/2021, 11/16/2020 and 03/04/2019 ?? TECHNIQUE: Bilateral MLO and CC views were obtained digitally with 3-D mammogram (digital breast tomosynthesis). Computer-aided detection was utilized in evaluation of this exam (CAD). FINDINGS: There is no evidence of suspicious mass or architectural distortion. ??No worrisome calcifications are evident. ??There has been no significant change from prior exam(s). ?? BREAST DENSITY: A - The breasts are almost entirely fatty. Procedure Note Jessica Veliz MD - 12/10/2024 CLINICAL: 59 years old, Female, routine annual exam. COMPARISON: 12/06/2023, 11/23/2022, 11/17/2021, 11/16/2020 and 03/04/2019 TECHNIQUE: Bilateral MLO and CC views were obtained digitally with 3-Dmammogram (digital breast tomosynthesis). Computer-aided detection wasutilized in evaluation of this exam (CAD). FINDINGS: There is no evidence of suspicious mass or architectural distortion. Noworrisome calcifications are evident. There has been no significantchange from prior exam(s). BREAST DENSITY: A - The breasts are almost entirely fatty. IMPRESSION: No evidence of breast malignancy. BI-RADS CATEGORY: 1 - NEGATIVE RECOMMENDATION: Screening bilateral mammogram is recommended in 1 year. Mammo Location: [facility], [address] [place] [address], [id number], . -------- FINAL REPORT -------- Dictated By: Jessica Veliz Dictated Date: 12/10/2024 11:39 ET Assigned Physician: Jessica Veliz Reviewed and Electronically Signed By: Jessica Veliz Signed Date: 12/10/2024 11:41 ET Workstation ID: [id number] Transcribed By: Self Edit Transcribed Date: 12/10/2024 11:39 ET us Self Referral Sppl IMG BI PROCEDURES Final Resul t from Last 3 Months Insurance [facility]) Care Teams Vehicle Return Associate Relationship Specialty Start Date End Date Adin Hoffman MD [address] [place] [address] PCP - General Internal Medicine 10/20/16
--- OUTSIDE RECORDS SUMMARY | 2024-12-31 08:30 | XMS_ITS | Encounter Summary ---
Author Organization [facility] Address [address] [place] [address] Care Team Providers Care Sales Secretary Name Role Phone Adin Hoffman MD Primary Care Provider Unavailab le Encounter Details Date Type Department Care Team Description 03/05/2019 Orders Only Medical Records [address] [place] [id number] Abstract, Provider Social History Tobacco Use Types Packs/Day Years Used Date Smoking Tobacco: Former Smokeless Tobacco: Never Alcohol Use Standard Drinks/Week Comments Yes 0 (1 standard drink = 0.6 oz pur e alcohol) rarely Sex Assigned at Date Recorded Not on file documented as of this encounter Plan of Treatment Not on file documented as of this encounter Procedures Procedure Name Priority Date/Time Associated Diagnosis Comments OUTSIDE MAMMO Routine 03/04/2019 documented in this encounter Results * OUTSIDE MAMMO (03/04/2019) Roberto Zapata MD RADIOLOGY documented in this encounter Visit Diagnoses Not on filedocumented in this encounter Care Teams Sales Secretary Relationship Specialty Start Date End Date Adin Hoffman MD PCP - General Internal Medicine 10/20/16 documented as of this encounter
--- OUTSIDE RECORDS SUMMARY | 2024-12-31 08:30 | XMS_ITS | Encounter Summary ---
Author Organization [facility] Address [address] [place] [address] Care Team Providers Care Academic Support Director Name Role Phone Adin Hoffman MD Primary Care Provider [phone] Reason for Referral * Imaging (Routine) - Closed Specialty Diagnoses / Procedures Referred By Contac t Referred To Contact Radiology Diagnoses Encounter for screening mammogram for breast cancer Procedures MG Mammo Digital Screening w Mushtaq bilat Sppl, Self Referral [facility] Referral ID Status Reason Start Date Expiration Date Visits Re quested Visits Authorized [id number] Closed 11/12/2024 11/12/2025 1 1 * Imaging (Routine) - Closed Specialty Diagnoses / Procedures Referred By Contac t Referred To Contact Radiology Diagnoses Encounter for screening mammogram for breast cancer Procedures MG Mammo Digital Screening w Mushtaq bilat Spp, Self Referral [facility] Referral ID Status Reason Start Date Expiration Date Visits Re quested Visits Authorized [id number] Closed 11/12/2024 11/12/2025 1 1 Reason for Visit * Imaging (Routine) - Closed Specialty Diagnoses / Procedures Referred By Contac t Referred To Contact Radiology Diagnoses Encounter for screening mammogram for breast cancer Procedures MG Mammo Digital Screening w Mushtaq bilat Sppl, Self Referral [facility] Referral ID Status Reason Start Date Expiration Date Visits Re quested Visits Authorized [id number] Closed 11/12/2024 11/12/2025 1 1 Encounter Details Date Type Department Care Team (Latest Contact Info) Description 12/10/2024 8:11 AM EST - 12/10/2024 11:59 PM EST Hospital Encounter [facility] [address] [address] Encounter for screening mammogram for breast cancer Discharge Disposition: Home or Self Care Social History Tobacco Use Types Packs/Day Years Used Date Smoking Tobacco: Former Smokeless Tobacco: Never Alcohol Use Standard Drinks/Week Comments Yes 0 (1 standard drink = 0.6 oz pur e alcohol) Comments No Sex and Gender Information Value Date Recorded Sex Assigned at Not on file Legal Sex Female 9:34 AM EST Gender Identity Not on file Sexual Orientation Not on file documented as of this encounter Medications at Time of Discharge adalimumab (Humira,CF, Pen) 40 mg/0.4 mL pen Inject 40mg (0.4 mL) into the skin once every other week. 2 each 2 06/09/2022 11:07 AM EDT 04/08/2022 ondansetron (ZOFRAN) 4 mg tablet Take 4 each by mouth every 8 (eight) hours if needed. sertraline (ZOLOFT) 100 mg tablet Take by mouth 1 (one) time each day. documented as of this encounter Discharge Disposition Disposition Code Departure Means Destination Home or Self Care documented in this encounter Plan of Treatment Not on file documented as of this encounter Procedures Procedure Name Priority Date/Time Associated Diagnosis Comments MG MAMMO DIGITAL SCREENING W MUSHTAQ BILAT Routine 12/10/2024 9:03 AM EST Encounter for screening mammogram for breast cancer documented in this encounter Results * MG Mammo Digital Screening w Mushtaq bilat (12/10/2024 9:03 AM EST) Anatomical Region Laterality Modality Breast Bilateral Mammography 12/10/2024 11:3 9 AM EST Impressions 12/10/2024 11:41 AM EST No evidence of breast malignancy. BI-RADS CATEGORY: 1 - NEGATIVE RECOMMENDATION: Screening bilateral mammogram is recommended in 1 year. Mammo Location: [facility], [address] [place] [address], [id number], . -------- FINAL REPORT -------- Dictated By: Jessica Veliz Dictated Date: 12/10/2024 11:39 ET Assigned Physician: Jessica Veliz Reviewed and Electronically Signed By: Jessica Veliz Signed Date: 12/10/2024 11:41 ET Workstation ID: [id number] Transcribed By: Self Edit Transcribed Date: 12/10/2024 [...] year. Mammo Location: [facility], [address] [place] [address], [id number], . -------- FINAL REPORT -------- Dictated By: Jessica Veliz Dictated Date: 12/10/2024 11:39 ET Assigned Physician: Jessica Veliz Reviewed and Electronically Signed By: Jessica Veliz Signed Date: 12/10/2024 11:41 ET Workstation ID: [id number] Transcribed By: Self Edit Transcribed Date: 12/10/2024 11:39 ET us Self Referral Sppl IMG BI PROCEDURES Final Resul t documented in this encounter Visit Diagnoses Diagnosis Encounter for screening mammogram for breast cancer documented in this encounter Care Teams Academic Support Director Relationship Specialty Start Date End Date Adin Hoffman MD [address] [place] [id number] PCP - General Internal Medicine 10/20/16 documented as of this encounter
--- OUTSIDE RECORDS SUMMARY | 2024-12-31 08:31 | XMS_ITS | Encounter Summary ---
Author Organization [facility] Address [address] [place] [address] Care Team Providers Care Linoleum Printer Name Role Phone Amanda, Pcp Primary Care Provider Adin Ivory MD Primary Care Provider Alexandru andino Encounter Details Date Type Department Care Team Description 04/06/2016 Hospital Medical Records [address] [place] [address] Agnes Saucedo MD Social History Tobacco Use Types Packs/Day Years Used Date Smoking Tobacco: Former Smokeless Tobacco: Never Alcohol Use Standard Drinks/Week Comments Yes 0 (1 standard drink = 0.6 oz pur e alcohol) rarely Sex Assigned at Date Recorded Not on file documented as of this encounter Plan of Treatment Not on file documented as of this encounter Visit Diagnoses Not on filedocumented in this encounter Care Teams Linoleum Printer Relationship Specialty Start Date End Date Amanda, Pcp PCP - General Internal Medicine 09/13/16 10/19/16 Adin Hoffman MD PCP - General Internal Medicine 10/20/16 documented as of this encounter
--- OUTSIDE RECORDS SUMMARY | 2024-12-31 08:31 | XMS_ITS ---
Author Organization [facility] Address [address] 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 Name Role Phone MARY JOYCE Primary Care Provider JimmyemilyToro toledo Unavailable [phone] Allergies Allergen (clinical drug ingredient) Drug/Non Drug Allergy documented on EMR Reaction Allergy Type Onset Date Status NKDA (uncoded) Unknown Allergy Activ e Results Component Value Reference Range Notes Lipid Panel-[id number] (Not yet reviewed by provider) Interpretation: Performing Lab:[facility], [address] [facility], [place], Phone - [phone], Director - Nuvia Notes/Report: Test(s) 984746-Qjslibjgzhexr Acid, Serum was developed and its performance characteristics determined by [facility]. It has not been cleared or approved by the Food and Drug Administration. Cholesterol, Total 262 100-199 mg/dL Triglycerides 133 0-149 mg/dL HDL Cholesterol 78 >39 mg/dL VLDL Cholesterol Delio 23 5-40 mg/dL LDL Chol Calc ([facility]) 161 0-99 mg/dL Vitamin B12 and Folate-70716 0 Reviewed date:11/28/2024 02:48:50 PM Interpretation: Performing Lab:[facility], [address], [place], Phone - [phone], Director - Nuvia Notes/Report: Test(s) 781759-Cutwhdtcdctnr Acid, Serum was developed and its performance characteristics determined by [facility]. It has not been cleared or approved by the Food and Drug Administration. Vitamin B12 571 101-3766 pg/mL Folate (Folic Acid), Serum 14.2 >3.0 ng/mL A serum folate concentration of less than 3.1 ng/mL is considered to represent clinical deficiency. Hemoglobin Z9w-795904 Reviewed date:11/28/2024 02:49:30 PM Interpretation: Performing Lab:[facility], Phone - [phone], [facility] [place]Report: Test(s) 370941-Gilahdstukeil Acid, Serum was developed and its performance characteristics determined by [facility]. It has not been cleared or approved by the Food and Drug Administration. Hemoglobin A1c 5.7 4.8-5.6 % . Prediabetes: 5.7 - 6.4 Diabetes: >6.4 Glycemic control for adults with diabetes: <7.0 Methylmalonic Acid, Serum-70 6961 Reviewed date:11/28/2024 02:49:10 PM Interpretation: Performing Lab:[facility] [address], Phone - [phone], [facility] [place]/Report: Test(s) 827508-Voogngfdbivcb Acid, Serum was developed and its performance characteristics determined by [facility]. It has not been cleared or approved by the Food and Drug Administration. Methylmalonic Acid, Serum 163 0-378 nmol/L Homocyst(e)ine-044027 Reviewed date:11/28/2024 02:49:01 PM Interpretation: Performing Lab:[facility] [address], Phone - [phone], [facility] [place]/Report: Test(s) 059388-Jvzfupheexsmp Acid, Serum was developed and its performance characteristics determined by [facility]. It has not been cleared or approved by the Food and Drug Administration. Homocyst(e)ine 15.0 0.0-14.5 umol/L TSH+Free T4 Reviewed date:11/28/2024 02:49:19 PM Interpretation: Performing Lab:[facility] [address], Phone - [phone], [facility] [place]/Report: Test(s) 241725-Teihxqzizcppz Acid, Serum was developed and its performance characteristics determined by [facility]. It has not been cleared or approved by the Food and Drug Administration. TSH-ICMA 1.3 Reference Range: Non- Adult 0.450-4.500 First Trimester 0.100-4.000 Second Trimester 0.200-4.000 Third Trimester 0.300-4.500 Free T4 by Dialysis[facility]Machine Ceramic Coater 1.5 This test was developed and its performance characteristics determined by [facility]. It has not been cleared or approved by the Food and Drug Administration. Reference Range: Pubertal Children and Adults: 0.8 - 1.7 REASON FOR VISIT CPE Medications Medication SIG (Take, Route, Frequency, Duration) Notes Start Date End Date Status Enbrel 50 MG/ML 1 mL Subcutaneous Active Cinnamon Plus Chromium 200-1000 MCG-MG as directed Orally 02/07/2018 Active Niacin 500 MG 1 tablet with food Orally Once a day for 30 day(s) 02/07/2018 Not-Taking Calcium 600 MG 1 tablet with meals Orally Twice a day for 30 day(s) 02/07/2018 Active Biotin 5000 MCG 1 capsule Orally Onc e a day for 30 day(s) 02/07/2018 Active Humira Not-Taking Sertraline HCl 25 MG TAKE 1 TABLET BY [facility] ONCE DAILY WITH 50 MG TABLET 90 for 90 Active Sertraline HCl 50 MG TAKE 1 TABLET ONCE DAILY for 90 Active Garcinia Cambogia-Chromium 500-200 MG-MCG as directed Orally 02/07/2018 Not-Takin g Bactrim DS 800-160 MG 1 tablet Orally Tw ice a day for 3 day(s) 04/09/2021 Not-Taking Ondansetron 4 MG 1 tablet on the [...] Vaccine Route Administration Date Status Comme nts Flublok 27175 IM Intramuscular 11/14/2024 Administered Social History Tobacco Use: Social History Observation Description Date Details (start date - stop date) Never Smoker NA - NA Tobacco Use/Smoking Question Answer Notes Are you a nonsmoker Alcohol Screen (Audit-C) Question Answer Notes Did you have a drink containing alcohol in the p ast year? No Points 0 Interpretation Negative Vital Signs Temperature 97.4 degrees Fahrenheit 11/14/19 25 Oximetry 97 % 11/14/2024 Heart Rate 98 /min 11/14/2024 Blood pressure systolic 120 mm Hg 11/14/19 25 Blood pressure diastolic 78 mm Hg 025 Weight 222.2 lbs 11/14/2024 BMI 40.64 kg/m2 11/14/2024 Height 62 in 11/14/2024 Encounters Encounter Location Date Provider Diagnosis [facility] [address] [facility] [address] [place] [address] 11/14/2024 Toro Cabrera Essential (primary) hypertension I10 [...] abdominal hernia without obstruction or gangrene K45.8 Assessments Encounter Date Diagnosis (ICD Code) Assessment Notes Treatment Notes Treatment Clinical Notes Section Notes 11/14/2024 Essential (primary) hypertension (ICD-10 - I10) [...] patient but was available upon request 11/14/2024 Major depressive disorder, single episode, unspecified [...] patient but was available upon request 11/14/2024 Mixed hyperlipidemia (ICD-10 - E78.2) Ms. [...] Treatment Pending Test Test Name Order Date Lipid Panel-[id number] 11/14/2024 Next Appt Details Follow Up: 1 Year, Reason: Provider Name:Toro mo, 11/12/2025 08:30:00 AM, [address] [place] [address], [phone], Progress Notes * MARY ALICE BERNALCANDICEOB:[birth year] (59 yo F)Acc No.[id number]:11/14/2024 Progress Notes Patient:?MARY ALICE BERNAL Provider:?Toro Cabrera :1965???Age:59 Y???Sex:Female D ate:11/14/2024 Address:[address] [place], [place] [id number] Pcp:MARY JOYCE Subjective: * Chief Complaints: * ???CPE * HPI: ???Internal Medicine:?Ms. Bernal is a 59 year old lady with depression and diverticulitis here for annual physical appt. She is physically active as much as possible because of her osteoarthritis/psoriatic arthritis and she follows up with Dr. Jimenes follows up every 6 months. She gained about 12 lbs since the last visit. She is planning on getting back to gym. Mood stable on current regimen. She sleeps well, appetite is good. No GI or symptoms. She denies any other active issues or concerns. ???Depression Screening:?PHQ-9?Little interest or pleasure in doing things?Several days ?Feeling down, depressed, or hopeless?Several days ?Trouble falling or staying asleep, or sleeping too much?Several days ?Feeling tired or having little energy?Not at all ?Poor appetite or overeating?Not at all ?Feeling bad about yourself or that you are a failure, or have let yourself or your family down?Not at all ?Trouble concentrating on things, such as reading the newspaper or watching television?Not at all ?Moving or speaking so slowly that other people could have noticed; or the opposite, being so fidgety or restless that you have been moving around a lot more than usual?Several days ?Thoughts that you would be better off or of hurting yourself in some way?Not at all ?Total Score?4 ?Interpretation?Minimal Depression * ROS:?General/Constitutional:?Overall health?Good.?Change in appetite?denies.?Chills?denies.?Fever?denies.?Night sweats?denies.?Sleep disturbance?denies.?Weight gain?denies.?Weight loss?denies.?Neurologic:?Difficulty speaking?denies.?Dizziness?denies.?Gait abnormality?denies.?Headache?denies.?Loss of strength?denies.?Memory loss?denies.?Seizures?denies.?Tingling/Numbness?denies .?Ophthalmologic:?Blurred vision?denies.?Discharge?denies.?Dry eye?denies.?Red eye?denies.?ENT:?Change in Voice?Denies.?Cold Symptoms?Denies.?Cough?Denies.?Dizziness?Denies.?Nasal Congestion?Denies.?Otalgia?Denies.?postnasal drip?Denies.?Blocked ear?denies.?Nosebleed?denies.?Snoring?denies.?Cardiovascular:?Diaphoresis?Denies.?Pedal Edema?Denies.?PND (Paroxsymal nocturnal dyspnea)?Denies.?Chest pain?denies.?Difficulty laying flat?denies.?Dyspnea on exertion?denies.?Heart murmur?denies.?Orthopnea?denies.?Respiratory:?Snoring?denies.?Asthma?denies.?Cough?denies.?Shortness of breath with exertion?denies.?Sputum production?denies.?Wheezing?denies.?Gastrointestinal:?Change in bowel habits?denies.?Constipation?denies.?Decreased appetite?denies.?Diarrhea?denies.?Heartburn?denies.?Nausea?denies.?Vomiting?concepcion es.?Musculoskeletal:?tingling/numbness?Denies.?myalgias?Denies.?Joint Swelling?Denies.?extremeties?normal.?Arthritis?denies.?Back problems?denies.?Carpal tunnel?denies.?Joint stiffness?denies.?Muscle aches?denies.?Endocrine:?Bowel Changes?Denies.?Breast Discharge?Denies.?poor libido?Denies.?Cold intolerance?denies.?Excessive sweating?denies.?Excessive thirst?denies.?Frequent urination?denies.?Thyroid problems?denies.?Skin:?Bruising?Denies.?Eczema?denies.?Hair changes?denies.?Rash?denies.?Skin lesion(s)?denies.?Psychiatric:?Anxiety?denies.?Depressed mood?denies.?Difficulty sleeping?denies.?Nervous breakdown?denies.?Substance abuse?denies.?Urology:?abnormal menstrual bleeding?denies.?blood in urine?denies.?burning on urination?denies.?difficulty urinating?denies.?discharge?denies.?dysuria?denies.? * Medical History:? * Surgical History:?Colectomy and ilestomy and reversed at [facility] from C Diff colitis 2016Left Breast bx and normal and See Dr Zapata * Hospitalization/Major Diagno stic Procedure:?surgery * Family History:?Mother: dece ased.?Paternal Grand Father: psoriasis.?Father: diagnosed with Cancer.? Father had Lymphoma Mother had CKD from HTN. * Social History:?Tobacco Use:?Tobacco Use/Smoking?Are you a?nonsmoker ???Drugs/Alcohol:?Alcohol Screen (Audit-C)?Did you have a drink containing alcohol in the past year??No ?Points?0 ?Interpretation?Negative ?Do you drink alcohol?: yes?.?What kind of alcohol do you drink: rare social use. * Medications:?TakingEnbrel 50 MG/ML Solution Prefilled Syringe 1 mL Subcutaneous Biotin 5000 MCG Capsule 1 capsule Orally Once a day Calcium 600 MG Tablet 1 tablet with meals Orally Twice a day Cinnamon Plus Chromium 200-1000 MCG-MG Capsule as directed Orally Folic Acid 400 MCG Tablet 1 tablet Orally Once a day Magnesium Oxide 400 MG Tablet 1 tablet as needed Orally Once a day Hydrocortisone 2.5 % Cream 1 application Externally Twice a day Mometasone Furoate 0.1 % Cream 1 application Externally Once a day Ondansetron 4 MG Tablet Disintegrating 1 tablet on the tongue and allow to dissolve Orally Once a day as needed Sertraline HCl 50 MG Tablet TAKE 1 TABLET ONCE DAILY Sertraline HCl 25 MG Tablet TAKE 1 TABLET BY MOUTH ONCE DAILY WITH 50 MG TABLET 90 Taking Enbrel 50 MG/ML Solution Prefilled Syringe 1 mL Subcutaneous Taking Biotin 5000 MCG Capsule 1 capsule Orally Once a day Taking Calcium 600 MG Tablet 1 tablet with meals Orally Twice a day Taking Cinnamon Plus Chromium 200- 1000 MCG-MG Capsule as directed Orally Taking Folic Acid 400 MCG Tablet 1 tablet Orally Once a day Taking Magnesium Oxide 400 MG Tablet 1 tablet as needed Orally Once a day Taking Hydrocortisone 2.5 % Cream 1 application Externally Twice a day Taking Mometasone Furoate 0.1 % Cream 1 application Externally Once a day Taking Ondansetron 4 MG Tablet Disintegrating 1 tablet on the tongue and allow to dissolve Orally Once a day as needed Taking Sertraline HCl 50 MG Tablet TAKE 1 TABLET ONCE DAILY Taking Sertraline HCl 25 MG Tablet TAKE 1 TABLET BY MOUTH ONCE DAILY WITH 50 MG TABLET 90 Not-TakingHumira Bactrim DS 800-160 MG Tablet 1 tablet Orally Twice a day Garcinia Cambogia-Chromium 500-200 MG-MCG Tablet as directed Orally Niacin 500 MG Tablet 1 tablet with food Orally Once a day Medication List reviewed and reconciled with the patientNot-Taking Humira Not-Taking Bactrim DS 800-160 MG Tablet 1 tablet Orally Twice a day Not-Taking Garcinia Cambogia-Chromium 500-200 MG-MCG Tablet as directed Orally Not-Taking Niacin 500 MG Tablet 1 tablet with food Orally Once a day Medication List reviewed and reconciled with the patient * Allergies:?NKDA Objective: * Vitals:?Temp:97.4F, Oxygen s at %:97%, HR:98/min, BP:120/78mm Hg, Wt:222.2lbs, BMI:40.64Index, Ht: 62 in. * ???Past Orders: Lab:Albumin/Creatinine Ratio ,Urine-[id number] * Collection Date 03/21/2024 03/20/2024 Collection Time 04:45 AM 08:11 AM Order Date 03/21/2024 03/20/2024 Creatinine, Urine 84.3 (Ref Range: Not Estab. mg/dL) TNP (Ref Range: mg/dL) Albumin, Urine 7.3 (Ref Range: Not Estab. ug/mL) TNP Alb/Creat Ratio 9 (Ref Range: 0-29 mg/g creat) NR ???Lab:Iron and TIBC-[id number] (Order Date - 03/20/2024) (Collection Date & Time - 03/20/2024 08:11 AM)?ValueReference Range?Iron Bind.Cap.(TIBC)407 250-450 - ug/dL?ZSCI643292-210 - ug/dL?Pdxj83115-009 - ug/dL ?Iron Dgdmvcgppo3031-97 - % ???Lab:CBC, Platelet, No Differential-[id number] (Order Date - 03/20/2024) (Collection Date & Time - 03/20/2024 08:11 AM)?ValueReference Range ?WBC6.73.4-10.8 - x10E3/uL?RBC4.943.77-5.28 - x10E6/uL ?Uvtwfpwlie26.711.1-15.9 - g/dL?Lgtmpltkfi76.034.0-46.6 - % ?QIX1624-53 - fL?MCH25.7L26.6-33.0 - pg?MCHC32.631.5-35.7 - g/dL?RDW16.1H11.7-15.4 - %?Zbjkxiygx394483-203 - x10E3/uL ???Lab:Hgb A1c with eAG Estimation-[id number] (Order Date - 03/20/2024) (Collection Date & Time - 03/20/2024 08:11 AM)?ValueReference Range?Hemoglobin A1c5.9H4.8-5.6 - %?Estim. Avg Glu (eAG)123- mg/dL ???Lab:LP+Non-HDL Cholesterol-447619 (Order Date - 03/20/2024) (Collection Date & Time - 03/20/2024 08:11 AM)?ValueReference Range?Cholesterol, Fzsll829D771-242 - mg/dL?Stoxehhbjaflg3261-306 - mg/dL?HDL Amxudacnrly301>39 - mg/dL?VLDL Cholesterol Htt987-61 - mg/dL?LDL Chol Calc ([facility])416X5-82 - mg/dL?Non-HDL Frpframdxzg192P5-787 - mg/dL ???Lab:Comp. Metabolic Panel ([id number] (Order Date - 03/20/2024) (Collection Date & Time - 03/20/2024 08:11 AM)?ValueReference Range?Ivzwrxz50 70-99 - mg/dL?ZEE837-29 - mg/dL?Creatinine1.06H0.57-1.00 - mg/dL ?BUN/Creatinine Szqdv459-28 -?Bqajex010691-576 - mmol/L ?Potassium4.33.5-5.2 - mmol/L?Rvizjkng03475-731 - mmol/L ?Anion Gap17.010.0-18.0 - mmol/L?Carbon Dioxide, Gfxye6932-77 - mmol/L?Calcium9.58.7-10.2 - mg/dL?Protein, Total7.26.0-8.5 - g/dL ?Albumin4.53.8-4.9 - g/dL?Globulin, Total2.71.5-4.5 - g/dL ?A/G Ratio1.71.2-2.2 -?Bilirubin, Total0.40.0-1.2 - mg/dL ?Alkaline Fftrbnlutpi81301-192 - IU/L?AST (SGOT)230-40 - IU/L ?ALT (SGPT)250-32 - IU/L?eGFR61>59 - mL/min/1.73 * Examination: ???General Examination: ?Psychiatry?Normal.?GENERAL APPEARANCE:?Well developed, well nourished, in no acute distress.?MUSCULOSKELETAL:?Normal,BL knee crepitation.?HEAD:?Normocephalic, atraumatic.?EYES:?Pupils equal, round, reactive to light and accommodation, sclera non-icteric.?EARS:?Normal.?ORAL CAVITY:?Normal.?THROAT:?Clear.?OROPHARYNX?Normal.?SINUSES?Normal.?NECK/THYROID:?Neck supple, full range of motion, no cervical lymphadenopathy.?SKIN:?Warm and dry, no suspicious lesions,psoriasis on the neck.?HEART:?, S1, S2 normal, regular rate and rhythm, no murmurs, rubs, gallops.?LUNGS:?, clear to auscultation bilaterally, no wheezes, rales, rhonchi.?BREASTS:?__.?ABDOMEN:?Soft, nontender, nondistended, bowel sounds present,Prominent hernia is noted on the right-mid quadrant near the umbilicus.?EXTREMITIES:?Normal.?PERIPHERAL PULSES:?Normal.?NEUROLOGIC:?Nonfocal,? appropriate?motor strength normal upper and lower extremities, sensory exam intact.?FEMALE GENITOURINARY:?__.?MALE GENITOURINARY:?__.?PODIATRIC:?Normal.?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? .? Assessment: * Assessment: 1.?Annual visit for general adult medical examination without abnormal findings - Z00.00 (Primary)???2.?Essential (primary) hypertension - I10???3.?Morbid (severe) obesity due to excess calories - E66.01???4.?Major depressive disorder, single episode, unspecified - F32.9???5.?Impaired fasting glucose - R73.01???6.?Mixed hyperlipidemia - E78.2???7.?Psoriasis, unspecified - L40.9???8.?Fatigue, unspecified type - R53.83???9.?Encounter for immunization - Z23???10.?Other specified abdominal hernia without obstruction or gangrene - K45.8??? Ms. Bernal is a 58 year old lady with depression and diverticulitis here for annual physical examination. Plan is as follows Hypertension. -Blood pressure well controlled on diet. Continue on the same regimen. EKG is done in the office today, HR of 79bpm, Sinus rhythm, No ST elevation/depression. No BBB. normal intervals. Morbid obesity. -Advised [...] was done in 2022 which it was normal.? Screening Bloodwork before next appt General concerns have been discussed I have rendered the services for this patient under direct supervision of Dr. Joyce, who did not see the patient but was available upon request Plan: * Treatment: 2.?Mixed hyperlipidemia?LAB: Lipid Panel-[id number] (Collection Date & Time - 11/14/2024 09:58 AM) 3.?Fatigue, unspecified type ?LAB: Vitamin B12 and Folate-786355 (Collection Date & Time - 11/14/2024 09:58 AM) ?LAB: Methylmalonic Acid, Serum-900624 (Collection Date & Time - 11/14/2024 09:58 AM) ?LAB: Homocyst(e)ine-670252 (Collection Date & Time - 11/14/2024 09:58 AM) ?LAB: TSH+Free T4 (Collection Date & Time - 11/14/2024 09:58 AM) * Immunizations:? Flublok 06101 : 0.5 mL (Route: Intramuscular) given by Krysta Ruano on Right Deltoid (Encounter for immunization) * Procedure Codes:?3078F DIAST BP < 80 MM [id number] SYST BP LT 130 MM [id number] FLUBLOK VACC RIV3 NO [id number] BRIEF EMOTIONAL/BEHAV [id number] AUDIT/DAST, 15-30 GPS26848 BEHAV CHNG SMOKING 3-10 [id number] ELECTROCARDIOGRAM, COMPLETE * Preventive Medicine:?COVID (2) 2020, (1) 2021 FLU-due? 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 MAMMO[facility] 02/2018, she has an appt in 2024. * Follow Up:?1 Year * * Sign off status: Completed true * Provider:?Toro Cabrera Date:?11/14/19 Generated for Teresa birch/Kim/eTransmitting on:?12/31/2024 08:31 AM EST History and Physical Notes * HPI (History of Present Illness) Category Sub-Category Detail Notes Category Not es Depression Screening PHQ-9 Little inte rest or pleasure in doing things: Several days Feeling down, depressed, or hopeless: Se veral days Trouble falling or staying asleep, or sl eeping too much: Several days Feeling tired or having little energy: N ot at all Poor appetite or overeating: Not at all Feeling bad about yourself o r that you are a failure, or have let yourself or your family down: Not at all Trouble concentrating on thi ngs, such as reading the newspaper or watching television: Not at all Moving or speaking so slowly that other people could have noticed; or the opposite, being so fidgety or restless that you have been moving around a lot more than usual: Several days Thoughts that you would be b miya off or of hurting yourself in some way: Not at all Total Score: 4 Interpretation: Minimal Depression Internal Medicine Ms. Saurabh tomas is a 59 year old lady with depression and diverticulitis here for annual physical appt. She is physically active as much as possible because of her osteoarthritis/psoriatic arthritis and she follows up with Dr. Jimenes follows up every 6 months. She gained about 12 lbs since the last visit. She is planning on getting back to gym. Mood stable on current regimen. She sleeps well, appetite is good. No GI or symptoms. She denies any other active issues or concerns. Examination Category Sub-Category Detail Notes Category Not es General Examination GENERAL APPEARANCE: Well dev eloped, well nourished, in no acute distress HEAD: Normocephalic, atrau matic EYES: Pupils equal, round, reactive to light and accommodation, sclera non-icteric EARS: Normal THROAT: Clear NECK/THYROID: Neck supple, full ra nge of motion, no cervical lymphadenopathy HEART: , S1, S2 normal, reg ular rate and rhythm, no murmurs, rubs, gallops LUNGS: , clear to auscultat ion bilaterally, no wheezes, rales, rhonchi ABDOMEN: Soft, nontender, non distended, bowel sounds present, Prominent hernia is noted on the right-mid quadrant near the umbilicus NEUROLOGIC: Nonfocal, appropriat e motor strength normal upper and lower extremities, sensory exam intact SKIN: Warm and dry, no facundo picious lesions, psoriasis on the neck EXTREMITIES: Normal PERIPHERAL PULSES: Normal BREASTS: __ MUSCULOSKELETAL: Normal, BL knee crep itation MALE GENITOURINARY: __ FEMALE GENITOURINARY: __ ORAL CAVITY: Normal PODIATRIC: Normal Psychiatry Normal OROPHARYNX Normal SINUSES Normal 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
--- OUTSIDE RECORDS SUMMARY | 2024-12-31 08:31 | XMS_ITS | Clinical Summary ---
Author Organization [facility] Address [address] [place] [address] Care Team Providers Care Station Cashier Name Role Phone Adin Hoffman MD Primary Care Provider Unavailab le Allergies Active Allergy Reactions Severity Noted Date Comments Tape Rash/Dermatitis 04/24/2019 Medications Medication Sig Dispensed Refills Start Date End Date Status sertraline (ZOLOFT) 50 MG tablet Take 50 mg by mouth daily. 0 Active calcium & magnesium carbonates (MYLANTA) per tablet Take 1 tablet by mouth daily. 0 Active Ped Qfmnvfczqagzx-Vk-Thim (MULTIVIT DROPS/FLUORIDE/IRON OR) Take by mouth. 0 Active Cholecalciferol (VITAMIN D3) 32590 UNITS Cap Take by mouth. 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 04/24/2019 Overview: 04/2016 s/p biopsy; and lobular hyperplasia Anxiety and depression 04/24/2019 Depression 12/20/2017 Incisional hernia 12/20/2017 Obesity (BMI 30-39.9) 12/20/2017 Vitamin D deficiency 12/20/2017 S/P colectomy 02/08/2016 Overview: Comments: perforated colon from diverticulitis and also had Cdiff in hosp and had illostomy and then reversal History of diverticulitis 12/07/2015 Overview: 12/2015 S/p colectomy Resolved Problems Problem Noted Date Resolved Date H/O Clostridium difficile infection 04/24/2019 Immunizations Name Administration Dates Next Due Tdap (Adacel) 09/12/2016 Family History Medical History Relation Name Comments No Known Problems Brother Melanoma Father Cancer of the Breast Maternal Grandmother at advanced age Renal Failure Mother sepsis Leukemia Mother's side uncle Relation Name Status Comments Brother Father Maternal Grandmother Mother Mother's side uncle Alive Social History Tobacco Use Types Packs/Day Years Used Date Smoking Tobacco: Former Smokeless Tobacco: Never Alcohol Use Standard Drinks/Week Comments Yes 0 (1 standard drink = 0.6 oz pur e alcohol) rarely Sex Assigned at Date Recorded Not on file Last Filed Vital Signs Vital Sign Reading Time Taken Comments Blood Pressure 133/84 05/14/2019 9:30 AM EDT Pulse 98 05/14/2019 9:30 AM EDT Temperature 36.3 ??C (97.3 ??F) 05/14/2019 9:30 AM ED T Respiratory Rate 16 10/20/2016 2:24 PM EST Oxygen Saturation - - Inhaled Oxygen Concentration - - Weight 95.3 kg (210 lb) 05/14/2019 9:30 AM EDT Height 157.5 cm (5' 2 ) 05/14/2019 9:30 AM EDT Body Mass Index 38.41 05/14/2019 9:30 AM EDT Plan of Treatment Health Maintenance Due Date Last Done Comments Covid-19 Vaccine (#1) 1965 HEPATITIS C SCREENING 1984 CHOLESTEROL SCREENING 1986 BASELINE HEALTH EXAM 40-64 2006 COLON CANCER SCREENING 2016 SHINGLES VACCINE (1 of 2) 2016 CERVICAL CANCER SCREENING 10/20/2019 10/20/2016 MAMMOGRAM 03/04/2020 03/04/2019, 02/05, 03/01/2018 (External Completion), Additional history exists INFLUENZA (#1) 2024 BMI CHECK/ADVISE 11/06/2024 03/22/2018, 10/20/2016 DTAP/TDAP/TD (2 - Td or Tdap) 09/12/2026 09/12/2016 PNEUMOCOCCAL VACCINE FOR HIG H RISK PATIENTS (#1) 2031 Care Teams Station Cashier Relationship Specialty Start Date End Date Adin Hoffman MD PCP - General Internal Medicine 10/20/16
--- OUTSIDE RECORDS SUMMARY | 2024-12-31 08:31 | XMS_ITS ---
Author Organization [facility] Address [address] [facility] [address] [place] [address] Care Team Providers Care Fiberglass Quality Technician Name Role Phone MARY JOYCE Primary Care Provider [phone] REASON FOR VISIT Cancel Appointment Request Encounters Encounter Location Date Provider Diagnosis [facility] [address] [facility] [address] [place] [address] 10/21/2024 MARY JOYCE Plan Of Treatment Next Appt Details Provider Name:Zoyasrinivasan Marquezeyad mo, 11/12/2025 08:30:00 AM, [address] [facility] [address], [place], [address], Progress Notes * MARY ALICE MORANOB:[birth year] (59 yo F)Acc No.[id number]:10/21/2024 Patient:?MARY ALICE MORAN :1965???Age:59 Y???Sex:Female Address: [place] [address] * true * Date:? Generated for Printi eyal/Kim/eTransmitting on:?12/31/2024 08:31 AM EST
--- OUTSIDE RECORDS SUMMARY | 2024-12-31 08:32 | XMS_ITS ---
Author Organization [facility] Address [address] [address] Care Team Providers Care Surgeon Chief Name Role Phone MARY JOYCE Primary Care Provider [phone] REASON FOR VISIT Lab results Encounters Encounter Location Date Provider Diagnosis [facility] [address] [facility] [address] [place] [address] 11/15/2024 MARY JOYCE Plan Of Treatment Next Appt Details Provider Name:Toro Marquezeyad mo, 11/12/2025 08:30:00 AM, [address] [facility] [address], [place], [address], Progress Notes * MARY ALICE MORANOB:[birth year] (59 yo F)Acc No.[id number]:11/15/2024 Patient:?MARY ALICE MORAN :1965???Age:59 Y???Sex:Female Address:[address] [place] [address] [place] [address] * true * Date:? Generated for Luciusi eyal/Kim/eTransmitting on:?12/31/2024 08:31 AM EST
== END 2024-12-31 08:46 | disposition home or self-care (01) ==
PROVIDERS: PCP Hospitalist; Visit Provider Internal Medicine Rheumatology
DX: L40.50 Arthropathic psoriasis, unspecified (principal); Z79.899 Other long term (current) drug therapy
CPT/HCPCS: 99214

== ENCOUNTER → 2024-12-31 08:12 | Outpatient (BNVA) | payer BC, SELFPAY | PROVIDERS: PCP Hospitalist; Visit Provider Internal Medicine Rheumatology ==

== ENCOUNTER 2025-04-01 08:23 | Outpatient (AMB) | payer BC, SELFPAY ==
--- NOTE | 2025-04-01 08:28 | MHC.OFFVIS ---
Vital Signs 04/01/25 08:29 Height 5 ft 1 in Weight 224 lb 13.944 oz BMI 42.5 BP 150/90 H Blood Pressure Location Rt brachial Position Sitting Pulse 90 Pulse Source Pulse Oximeter Pulse Oximetry (%) 97 Oxygen Delivery Method Room Air Comment 120/80 Intake Visit Reasons: 3 Months Intake Note: Patient presents for PSA follow up. Allergies No Known Allergies Allergy (Verified 04/01/25 08:28) HPI HPI 3 Months: Details: She is doing well. She woke up today with a sore throat and nasal congestion. She has allergies. No fevers or dyspnea or or cough. PFSH Surgical History H/O colectomy Family History Father Cancer Mother Kidney failure Social History Household Members: None Housing: House Alcohol intake: current Comment: OCC Patient Tobacco Use Status: Never used Tobacco Physical Exam Vital Signs: Last Vital Signs Pulse 90 04/01/25 08:29 BP 150/90 H 04/01/25 08:29 Pulse Ox 97 04/01/25 08:29 Oxygen Delivery Method Room Air 04/01/25 08:29 BMI result Body Mass Index 42.5 Const Other: General: Comfortable CVS: RRR Respiratory: clear to auscultation bilaterally. Good respiratory effort Skin: No lesions seen MSK: No tenderness of any joints. No synovitis. She has reduced mobility of bilateral wrists. Normal range of motion of shoulders and elbows. Knee flexion right is 80 degrees and left is 90. Bilateral hypertrophy noted on knees. Reduced external rotation of bilateral hips. Assessment & Plan Assessment & Plan (1) Psoriatic arthritis: Comment: In remission on enbrel. 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: Code(s): Z79.899 - Other retirement (current) drug therapy Category: Medical Plan: See above Orders: Orders Creatinine Today L40.50 - Arthropathic psoriasis, unspecified, Z79.899 - Other retirement (current) drug therapy Complete Blood Count Man Dif Today M32.9 - Systemic lupus erythematosus, unspecified C Reactive Protein Today L40.50 - Arthropathic psoriasis, unspecified, Z79.899 - Other retirement (current) drug therapy Complete Blood Count Auto Diff Today L40.50 - Arthropathic psoriasis, unspecified, Z79.60 - superintendent terminal (current) use of unspecified immunomodulators and immunosuppressants, Z79.899 - Other long wall mining machine tender (current) drug therapy Alanine Aminotransferase Today L40.50 - Arthropathic psoriasis, unspecified, Z79.899 - Other retirement (current) drug therapy Aspartate Amino Transferase Today L40.50 - Arthropathic psoriasis, unspecified, Z79.899 - Other retirement (current) drug therapy Erythrocyte Sedimentation Rate Today L40.50 - Arthropathic psoriasis, unspecified, Z79.899 - Other long wall mining machine tender (current) drug therapy Medications: Refilled etanercept Inject once weekly subcutaneous 50 mg subcut QWEEK 4 mL 2RF Coding Level of Care Code Est Pt Level 4 (01111) Complex EM visit Add On G2211 Diagnoses Psoriatic arthritis L40.50 Other long wall mining machine tender (current) drug therapy Z79.899
[2025-04-01 08:29] VITALS: BP 150/90; PULSE 90; O2SAT 97; BMI 42.5
--- OUTSIDE RECORDS SUMMARY | 2025-04-01 08:41 | XMS_ITS | Clinical Summary ---
Author Organization [facility] Address [address] [place] [address] Care Team Providers Care Preparation Plant Repairer Name Role Phone Adin Hoffman MD Primary Care Provider [phone] Allergies No known active allergies Medications adalimumab [...] every 8 (eight) hours if needed. Active Surgical History Surgery Date Site/Laterality Comments OTHER SURGICAL HISTORY december 2015 PROCEDURE: [place] LAPS COLECTOMY TOT W/O PRCTECT W/ILEOST/ILEOPXTS; COMMENT: had ostomy reversed in may 2016 BREAST BIOPSY 04/06/2016 Left PROCEDURE: [place] BX BREAST NEEDLE CORE W/O IMAGING GUIDANCE [...] 11/24/2021 Social Influencers of Health Screening 11/24/2021 Hypertension/CHF/CAD Annual BMP Blood Test 12/10/2024 Influenza Vaccine (Season Ended) 2025 DTaP,Tdap,and Td Vaccines (2 - Td or [...] age to complete this topic Meningococcal B Vaccine Aged Out No l onger eligible based on patient's age to complete [...] for breast cancer from Last 3 Months or Most Recently Relevant to Health Maintenance Results * MG Mammo Digital Screening w Mushtaq bilat (12/10/2024 9:03 AM EST) Anatomical Region Laterality Modality Breast Bilateral Mammography 12/10/2024 11:3 9 AM EST Impressions 12/10/2024 11:41 AM EST No evidence of breast malignancy. BI-RADS CATEGORY: 1 - NEGATIVE RECOMMENDATION: Screening bilateral mammogram is recommended in 1 year. [facility]amm[facility] Location: [facility], [address] [place] [address], [address], . -------- FINAL REPORT -------- Dictated By: Jessica Veliz Dictated Date: 12/10/2024 11:39 ET Assigned Physician: Jessica Veliz Reviewed and Electronically Signed By: Jessica Veliz Signed Date: 12/10/2024 11:41 ET Workstation ID: [id number] Transcribed By: Self Edit Transcribed Date: 12/10/2024 [...] year. Mammo Location: [facility], [address] [place] [address], [facility], . -------- FINAL REPORT -------- Dictated By: Jessica Veliz Dictated Date: 12/10/2024 11:39 ET Assigned Physician: Jessica Veliz Reviewed and Electronically Signed By: Jessica Veliz Signed Date: 12/10/2024 11:41 ET Workstation ID: [id number] Transcribed By: Self Edit Transcribed Date: 12/10/2024 11:39 ET us Self Referral Sppl IMG BI PROCEDURES Final Resul t from Last 3 Months or Most Recently Relevant to Health Maintenance Insurance [facility] Care Teams Preparation Plant Repairer Relationship Specialty Start Date End Date Adin Hoffman MD [address] [place] [id number] PCP - General Internal Medicine 10/20/16
== END 2025-04-01 09:12 | disposition home or self-care (01) ==
LOC: HO.RHES 08:24
PROVIDERS: PCP Hospitalist; Visit Provider Internal Medicine Rheumatology
DX: L40.50 Arthropathic psoriasis, unspecified (principal); Z79.899 Other long term (current) drug therapy
CPT/HCPCS: 99214

== ENCOUNTER 2025-04-01 08:23 | Outpatient (REF) | payer BC, SELFPAY ==
[2025-04-01 18:06] LABS: Baso%MD 0.6 %; Eos%MD 2.7 %; Hematocrit 41.4 % (37.0-47.0); Hemoglobin 13.9 g/dl (12.0-16.0); IG%MD 0.6 %; Lymph%MD 10.5 %; Mean Corpuscular HGB Conc 33.6 g/dl (31.0-35.0); Mean Corpuscular Hemoglobin 28.8 pg (27.0-33.0); Mean Corpuscular Volume 85.7 fL (80.0-98.0); Mean Platelet Volume 11.1 fL (9.4-12.3); Mono%MD 9.5 %; Neut%MD 76.1 %; Platelet Count 191 X10*3/uL (160-400); Red Blood Count 4.83 X10*6/uL (4.20-5.50); Red Cell Distribution Width 13.6 % (11.0-16.0); White Blood Count 7.8 X10*3/uL (4.8-10.8)
[2025-04-01 18:14] LABS: Alanine Aminotransferase 48 U/L (0-31); Aspartate Amino Transferase 34 U/L (5-31); C Reactive Protein 0.38 mg/dL (< or = 0.50); Estimated Glomerular Filt Rate 57
[2025-04-01 19:04] LABS: Erythrocyte Sedimentation Rate 28 MM/HR (0-20)
[2025-04-02 00:19] LABS: Band Neutrophils Percent 3 % (3-5); Eosinophils Absolute Manual 0.3 X10*3/uL (0.0-0.4); Eosinophils Percent Manual 4 % (0-4); Lymphocytes Absolute Manual 0.5 X10*3/uL (1.2-4.9); Lymphocytes Percent Manual 7 % (20-40); Monocytes Absolute Manual 0.8 X10*3/uL (0.1-1.2); Monocytes Percent Manual 10 % (2-11); Neutrophils Absolute Manual 6.2 X10*3/uL (2.0-8.3); Neutrophils Percent Manual 76 % (45-73)
[2025-04-02 00:20] LABS: Platelet Estimate NORMAL (NORMAL); Platelet Morphology Comment NORMAL; RBC Morphology NORMAL
[2025-04-02 09:14] LABS: HBc Num1 0.11 S/CO (0.00-0.79); HBsAGNum1 0.28 S/CO (0.00-0.99); Hepatitis B Core Antibody Nonreactive (Nonreactive); Hepatitis B Surface Antigen Negative (Negative); ~HepC Num1 0.11 S/CO (0.00-0.79); ~Hepatitis C Antibody Nonreactive (Nonreactive)
[2025-04-02 09:47] LABS: HBS Num1 0.31 mIU/mL (0-7.99); ~Hepatitis B Surface Antibody NONREACTIVE (Nonreactive)
[2025-04-04 00:34] LABS: TS Negative Control Passed; TS Panel A 0; TS Panel B 0; TS Positive Control Passed; TSpotTB Negative (Negative)
== END 2025-04-01 08:24 | disposition home or self-care (01) ==
LOC: HO.HKASLDS 08:23
PROVIDERS: PCP Hospitalist; Visit Provider Internal Medicine Rheumatology
DX: L40.50 Arthropathic psoriasis, unspecified (principal); M32.9 Systemic lupus erythematosus, unspecified; Z79.899 Other long term (current) drug therapy
CPT/HCPCS: 36415; 82565; 84450; 84460; 85007; 85025; 85027; 85652; 86140; 86481; 86704; 86706; 86803; 87340

== ENCOUNTER 2025-07-15 08:37 | Outpatient (REF) | payer BC, SELFPAY ==
--- OUTSIDE RECORDS SUMMARY | 2025-07-15 09:45 | XMS_ITS | Patient Health Record ---
Author Organization [facility] Address [address] [place] [address] Care Team Providers Care Splicer Apprentice Name Role Phone JANETBennett MARY Primary Care Provider Toro Cabrera Unavailable [phone] Allergies Allergen (clinical drug ingredient) Drug/Non Drug Allergy documented on EMR Reaction Allergy Type Onset Date Status NKDA (uncoded) Unknown Allergy Activ e Results Component Value Reference Range Notes MG MAMMO DIGITAL SCREENING W JESU BILAT Reviewed date:12/10/2024 03:24:59 PM Interpretation: Performing Lab: Notes/Report: Note See Note [facility], a member of [facility] Patient Name: SARAH BERNAL Date of : 1965 Reason for Exam: Exam Date: 12/10/2024 [id number] EST Report Status: Final Ordering Provider: SELF REFERRAL SPPL PCP: MARY JOYCE CLINICAL: 59 years o ld, Female, routine annual exam. COMPARISON: , 11/23/2022, 11/17/2021, 11/16/2020 and 03/04/2019 TECHNIQUE: Bilateral [...] is recommended in 1 year. Mammo Location: [facility], [address] [place] [address], [address], . -------- FINAL REPOR T -------- Dictated By: Jessica Veliz Dictated Date: 12/10/2024 11:39 ET Assigned Physician: Jessica Veliz Reviewed and Electronically Signed By: Jessica Veliz Signed Date: 025 11:41 ET Workstation ID: [id number] Transcribed By: Self Edit Transcribed Date: 12/10/2024 11:39 ET TSH+Free T4 Reviewed date:11/28/2024 02:49:19 PM Interpretation: Performing Lab:[facility], [address] [place] [address], Phone - [phone], Director - [facility] Notes/Report: Test(s) 585985-Keppbwzniuxui Acid, Serum was developed and its performance characteristics determined by [facility]. It has not been cleared or approved by the Food and Drug Administration. TSH-ICMA 1.3 Reference Range: Non- Adult 0.450-4.500 First Trimester 0.100-4.000 Second Trimester 0.200-4.000 Third Trimester 0.300-4.500 Free T4 by Dialysis/Park Naturalist 1.5 This test was developed and its performance characteristics determined by [facility]. It has not been cleared or approved by the Food and Drug Administration. Reference Range: Pubertal Children and Adults: 0.8 - 1.7 Homocyst(e)ine-207310 Reviewed date:11/28/2024 02:49:01 PM Interpretation: Performing Lab:[facility], Phone - [phone], Director - [facility] Notes/Report: Test(s) 909290-Bcddjjvcvrvbl Acid, Serum was developed and its performance characteristics determined by [facility]. It has not been cleared or approved by the Food and Drug Administration. Homocyst(e)ine 15.0 0.0-14.5 umol/L Methylmalonic Acid, Serum-70 6961 Reviewed date:11/28/2024 02:49:10 PM Interpretation: Performing Lab:[facility] Lesa Sheehan [facility], [place], Phone - [phone], Director [facility] Notes/Report: Test(s) 238872-Hvwufpvdrobpn Acid, Serum was developed and its performance characteristics determined by [facility]. It has not been cleared or approved by the Food and Drug Administration. Methylmalonic Acid, Serum 163 0-378 nmol/L Lipid Panel-425332 Reviewed date:01/07/2025 01:45:08 PM Interpretation: Performing Lab:[facility] [address], Phone - [phone], Director - [facility] Notes/Report: Test(s) 556455-Mbyjrujordbqc Acid, Serum was developed and its performance characteristics determined by [facility]. It has not been cleared or approved by the Food and Drug Administration. Cholesterol, Total 262 100-199 mg/dL Triglycerides 133 0-149 mg/dL HDL Cholesterol 78 >39 mg/dL VLDL Cholesterol Delio 23 5-40 mg/dL LDL Chol Calc (NIH) 161 0-99 mg/dL Hemoglobin Y0l-099903 Reviewed date:11/28/2024 02:49:30 PM Interpretation: Performing Lab:[facility] [address], Phone - [phone], Director - [facility] Notes/Report: Test(s) 282278-Iqhvktucpobuc Acid, Serum was developed and its performance characteristics determined by [facility]. It has not been cleared or approved by the Food and Drug Administration. Hemoglobin A1c 5.7 4.8-5.6 % . Prediabetes: 5.7 - 6.4 Diabetes: >6.4 Glycemic control for adults with diabetes: <7.0 Vitamin B12 and Folate-79510 0 Reviewed date:11/28/2024 02:48:50 PM Interpretation: Performing Lab:[facility] [address], Phone - [phone], Director - [facility] Notes/Report: Test(s) 710696-Nbqywqoyslcor Acid, Serum was developed and its performance characteristics determined by [facility]. It has not been cleared or approved by the Food and Drug Administration. Vitamin B12 965 451-2104 pg/mL Folate (Folic Acid), Serum 14.2 >3.0 ng/mL A serum folate concentration of less than 3.1 ng/mL is considered to represent clinical deficiency. Reason For Referral No Information Medications Medication SIG (Take, Route, Frequency, Duration) Notes Start Date End Date Status Sertraline HCl 50 MG TAKE 1 TABLET ONCE DAILY; Duration: 90 Active Cinnamon Plus Chromium 200-1000 MCG-MG as directed Orally 02/07/2018 Active Niacin 500 MG 1 tablet with food Orally Once a day; Duration: 30 day(s) 02/07/2018 Not-Taking Calcium 600 MG 1 tablet with meals Orally Twice a day; Duration: 30 day(s) 02/07/2018 Active Garckarina Cambogia-Chromium 500-200 MG-MCG as directed Orally 02/07/2018 Not-Takfior g Bactrim DS 800-160 MG 1 tablet Orally Tw ice a day; Duration: 3 day(s) 04/09/2021 Not-Mary Lou ng Enbrel 50 MG/ML 1 mL Subcutaneous Active Humira Not-Taking Ondansetron 4 MG 1 tablet on the tong ue and allow to dissolve Orally Once a day as needed; Duration: 90 days 02/07/2018 Active Mometasone Furoate 0.1 % 1 application Externally Once a day; Duration: 30 day(s) Active Hydrocortisone 2.5 % 1 application Externally Twice a day; Duration: 30 day(s) 10/27/2020 Active Sertraline HCl 25 MG TAKE 1 TABLET BY [facility] ONCE DAILY WITH 50 MG TABLET 90; Duration: 90 Active Magnesium Oxide 400 MG 1 tablet as neede d Orally Once a day; Duration: 30 day(s) 02/07/2018 Active Folic Acid 400 MCG 1 tablet Orally Once a day; Duration: 30 day(s) 02/07/2018 Active Biotin 5000 MCG 1 capsule Orally Onc e a day; Duration: 30 day(s) 02/07/2018 Active Immunizations Vaccine Route Administration Date Status Comme nts COVID Moderna Unknown 11/12/2020 Administered COVID Moderna Unknown 12/10/2020 Administered COVID Moderna Unknown 11/18/2021 Administered Flublok 52811 IM Intramuscular 11/14/2024 Administered Fluzone QD IM [...] Status Risk Notes Problem Iron deficiency anemia (63565764) Iron deficiency anemia, unspecified (D50.9) Active confirmed Problem Vitamin D deficiency (28754821) Vitamin D deficiency, unspecified (E55.9) Active confirmed Problem Morbid obesity (049277853) Morbid (severe) obesity due to excess calories (E66.01) Active confirmed Problem Mixed hyperlipidemia (174720066) Mixed hyperlipidemia (E78.2) Active confirmed Problem Major depression, single episode (77399880) Major depressive disorder, single episode, unspecified (F32.9) Active confirmed Problem Generalized anxiety disorder (52237408) Generalized anxiety disorder (F41.1) Active confirmed Problem Essential hypertension (45173828) Essential (primary) hypertension (I10) Active confirmed Problem Psoriasis (4492897) Psoriasis, unspecified (L40.9) Active confirmed Problem Idiopathic urticaria (23209200) Idiopathic urticaria (L50.1) Active confirmed Problem History of excision of intestinal structure (276673016) Acquired absence of other specified parts of digestive tract (Z90.49) Active confirmed Vital Signs Heart Rate 98 /min 11/14/2024 Temperature 97.4 degrees Fahrenheit 11/14/2024 Blood pressure diastolic 78 mm Hg 11/14/2024 Oximetry 97 % 11/14/2024 Height 62 in 11/14/2024 Blood pressure systolic 120 mm Hg 11/14/2024 Weight 222.2 lbs 11/14/2024 BMI 40.64 kg/m2 11/14/2024 Encounters Encounter Location Date Provider Diagnosis [facility] [address] [facility] [address] [place] [address] 11/14/2024 Toro Cabrera Essential (primary) hypertension I10 [...] abdominal hernia without obstruction or gangrene K45.8 [facility] [address] [facility] [address] [place] [address] 01/07/2025 MARY JOYCE Mixed hyperlipidemia E78.2 [facility] [address] [facility] [address] [place] [address] 10/21/[address] [place] [address] 10/21/[address] [place] [address] 11/15/2024 MARY JOYCE Assessments Encounter Date Diagnosis (ICD Code) Assessment [...] the patient but was available upon request 01/07/2025 Mixed hyperlipidemia (ICD-10 - E78.2) 11/14/2024 Morbid (severe) obesity due to excess [...] FERRITIN 08/12/2022 IRON & TIBC 08/12/2022 Lipid Panel-[id number] 01/07/2025 Future Test Test Name Order Date [id number] 03/22/2024 Lipid Panel-[id number] 03/22/2024 Basic Metabolic Panel [phone] 25-Hydroxyvitamin D LCMS D2+D3-607273 Hemoglobin A1c 03/22/2024 Next Appt Details Provider Name:Toro mo, 11/12/2025 08:30:00 AM, [address] [place] [address], [phone], Insurance Providers Payer Name Payer Address Payer Phone Subscriber Number Group Number Insured Name Patient Relationship to Insured Coverage Start Date Coverage End Date [facility] [address] [place] [address] [phone] [id number] Sarah Bernal Self - patient is the insured 2 Medical (General) History Medical History History ICD Code Depression Diverticulitis and status post colectomy in [address] Jimenes atypia on breast biopsy followed by [facility] lizarr[facility] Surgeon Dr. 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
--- OUTSIDE RECORDS SUMMARY | 2025-07-15 09:45 | XMS_ITS | Clinical Summary ---
Author Organization [facility] Address [address] [place] [address] Care Team Providers Care Certified Executive Chef Name Role Phone Adin Hoffman MD Primary Care Provider [phone] Allergies No known active allergies Medications adalimumab [...] Comments OTHER SURGICAL HISTORY december 2015 PROCEDURE: [place] LAPS COLECTOMY TOT W/O PRCTECT W/ILEOST/ILEOPXTS; COMMENT: had ostomy reversed in may 2016 BREAST BIOPSY 04/06/2016 Left PROCEDURE: [place] BX BREAST NEEDLE CORE W/O IMAGING GUIDANCE [...] Panel) 11/24/2021 Colorectal Cancer Screening: Colonoscopy 11/24/2021 HIV Screening 11/24/2021 Hepatitis C Screening 11/24/2021 Social Influencers of Health Screening 11/24/2021 Depression Screening 11/06/2024 Hypertension/CHF/CAD Annual BMP Blood Test 12/10/2024 Influenza Vaccine (#1) 2025 DTaP,Tdap,and Td Vaccines (2 - Td or Tdap) 09/12/2026 09/12/2016 Breast Cancer Screening 12/10/2026 12/10/19 25, 12/06/2023, 11/23/2022, Additional history exists RSV Immunization Adult Patients (1 - 1-dose 75+ series) 2041 HIB Vaccines Aged Out No longer eligi [...] year. Mammo Location: [facility], [address] [place] [address], [address], . -------- FINAL REPORT -------- Dictated By: Jessica Veliz Dictated Date: 12/10/2024 11:39 ET Assigned Physician: Jessica Veliz Reviewed and Electronically Signed By: Jessica Veliz Signed Date: 12/10/2024 11:41 ET Workstation ID: [id number] Transcribed By: Self Edit Transcribed Date: 12/10/2024 [...] year. Mammo Location: [facility], [address] [place] [address], [address], . -------- FINAL REPORT -------- Dictated By: Jessica Veliz Dictated Date: 12/10/2024 11:39 ET Assigned Physician: Jessica Veliz Reviewed and Electronically Signed By: Jessica Veliz Signed Date: 12/10/2024 11:41 ET Workstation ID: [id number] Transcribed By: Self Edit Transcribed Date: 12/10/2024 11:39 ET us Self Referral Sppl IMG BI PROCEDURES Final Resul t from Last 3 Months or Most Recently Relevant to Health Maintenance Insurance [facility]) Care Teams Certified Executive Chef Relationship Specialty Start Date End Date Adin Hoffman MD [address] [place] [phone] PCP - General Internal Medicine 10/20/16
--- OUTSIDE RECORDS SUMMARY | 2025-07-15 09:45 | XMS_ITS ---
Author Name [facility] Organization Unknown Care Team Organization Name Specialty Phone Email Start Date End [facility] te [facility] Adin Hoffman Primary Care 09/13/2022 024
[2025-07-15 12:59] LABS: MANUAL DIFF FLAG NO
[2025-07-15 13:19] LABS: Hematocrit 39.4 % (37.0-47.0); Hemoglobin 13.4 g/dl (12.0-16.0); Imm Gran Abs Auto 0.01 X10*3/uL (0.00-0.03); Imm Gran Pct Auto 0.2 % (0.0-0.4); Lymphocytes Absolute Auto 0.9 X10*3/uL (1.2-4.9); Mean Corpuscular HGB Conc 34.0 g/dl (31.0-35.0); Mean Corpuscular Hemoglobin 29.1 pg (27.0-33.0); Mean Corpuscular Volume 85.5 fL (80.0-98.0); NRBC Abs Auto 0.000 X10*3/uL (0.0-0.012); NRBC Pct Auto 0.0 /100WBC (0.0-0.2); Platelet Count 213 X10*3/uL (160-400); Red Blood Count 4.61 X10*6/uL (4.20-5.50); White Blood Count 5.3 X10*3/uL (4.8-10.8)
[2025-07-15 13:59] LABS: Alanine Aminotransferase 44 U/L (0-31); Aspartate Amino Transferase 32 U/L (5-31); Estimated Glomerular Filt Rate 47
== END 2025-07-15 08:38 | disposition home or self-care (01) ==
LOC: HO.HKASLDS 08:37
PROVIDERS: Visit Provider Internal Medicine Rheumatology
DX: R74.01 Elevation of levels of liver transaminase levels (principal); L40.50 Arthropathic psoriasis, unspecified; Z79.899 Other long term (current) drug therapy
CPT/HCPCS: 36415; 82247; 82248; 82565; 84450; 84460; 85025; 85652; 86140

== ENCOUNTER 2025-07-17 08:18 | Outpatient (AMB) | payer BC, SELFPAY ==
[2025-07-17 08:24] VITALS: BP 118/86; PULSE 88; O2SAT 99; BMI 41.9
--- NOTE | 2025-07-17 08:24 | A.OFFVIS_ITS ---
Vital Signs 07/17/25 08:24 Height 5 ft 1 in Weight 222 lb 0.088 oz BMI 41.9 BP 118/86 Blood Pressure Location Lt brachial Position Sitting Pulse 88 Pulse Source Pulse Oximeter Pulse Oximetry (%) 99 Oxygen Delivery Method Room Air Intake Visit Reasons: 3mon follow-up Intake Note: Patient presents for PSA follow up. Accompanied by: Self / Same As Patient Allergies No Known Allergies Allergy (Verified 07/17/25 08:25) HPI HPI 3mon follow-up: Details: She is doing well. No morning stiffness. No joint swelling. No psoriasis. No recent infection. PFSH Surgical History H/O colectomy Family History Father Cancer Mother Kidney failure Social History Household Members: None Housing: House Alcohol intake: current Comment: OCC Patient Tobacco Use Status: Never used Tobacco Physical Exam Vital Signs: Last Vital Signs Pulse 88 07/17/25 08:24 BP 118/86 07/17/25 08:24 Pulse Ox 99 07/17/25 08:24 Oxygen Delivery Method Room Air 07/17/25 08:24 BMI result Body Mass Index 41.9 Const Other: General: Comfortable CVS: RRR Respiratory: clear to auscultation bilaterally. Good respiratory effort Skin: No lesions seen MSK: No tenderness of any joints. No synovitis. She has reduced mobility of bilateral wrists. Normal range of motion of shoulders and elbows. Knee flexion right is 80 degrees and left is 90. Bilateral hypertrophy noted on knees. Assessment & Plan Assessment & Plan (1) Psoriatic arthritis: Comment: In remission on enbrel. 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 Enbrel 02/19/2024- Code(s): L40.50 - Arthropathic psoriasis, unspecified Category: Medical Plan: Labs for disease and drug monitoring of high-risk medication due today Continue Enbrel weekly subcutaneous injection autoinjector Return to clinic in 3 months (2) Other keno terminal operator (current) drug therapy: Code(s): Z79.899 - Other [facility] (current) drug therapy Category: Medical Plan: See above (3) Transaminitis: Comment: Mild. Improving. ? Hepatic steatosis versus drug-induced (enbrel) Code(s): R74.01 - Elevation of levels of liver transaminase levels Category: Medical Plan: US liver with elastography ordered Continue Enbrel as above She will avoid Tylenol, alcohol and NSAIDs We discussed importance of healthy eating and exercise Coding Level of Care Code Est Pt Level 4 (61707) Complex EM visit Add On G2211 Diagnoses Psoriatic arthritis L40.50 Other keno terminal operator (current) drug therapy Z79.899 Transaminitis R74.01
--- OUTSIDE RECORDS SUMMARY | 2025-07-17 09:17 | XMS_ITS | Clinical Summary ---
Author Organization [facility] Address [address] [place] [address] Care Team Providers Care Director Of Casino Name Role Phone Adin Hoffman MD Primary Care Provider [phone] Allergies No known active allergies Medications adalimumab [...] year. Mammo Location: [facility], [address] [place] [address], [facility], . -------- FINAL REPORT -------- Dictated By: Jessica Veliz Dictated Date: 12/10/2024 11:39 ET Assigned Physician: Jessica Veliz Reviewed and Electronically Signed By: Jessica Veliz Signed Date: 12/10/2024 11:41 ET Workstation ID: [id number] Transcribed By: Self Edit Transcribed Date: 12/10/2024 [...] year. Mammo Location: [facility], [address] [place] [address], [address], . -------- FINAL REPORT -------- Dictated By: Jessica Veliz Dictated Date: 12/10/2024 11:39 ET Assigned Physician: Jessica Veliz Reviewed and Electronically Signed By: Jessica Veliz Signed Date: 12/10/2024 11:41 ET Workstation ID: [id number] Transcribed By: Self Edit Transcribed Date: 12/10/2024 11:39 ET us Self Referral Sppl IMG BI PROCEDURES Final Resul t from Last 3 Months or Most Recently Relevant to Health Maintenance Insurance [facility] ([facility]) Care Teams Director Of Casino Relationship Specialty Start Date End Date Adin Hoffman MD [address] [place] [id number] PCP - General Internal Medicine 10/20/16
--- OUTSIDE RECORDS SUMMARY | 2025-07-17 09:17 | XMS_ITS | Patient Health Record ---
Author Organization [employer] Address [address] [place] [address] Care Team Providers Care Pinion And Wheel Truer Name Role Phone JANETBennett MARY Primary Care Provider Toro Cabrera Unavailable [phone] Allergies Allergen (clinical drug ingredient) Drug/Non Drug Allergy documented on EMR Reaction Allergy Type Onset Date Status NKDA (uncoded) Unknown Allergy Activ e Results Component Value Reference Range Notes MG MAMMO DIGITAL SCREENING W JESU BILAT Reviewed date:12/10/2024 03:24:59 PM Interpretation: Performing Lab: Notes/Report: Note See Note [facility], a member of [facility] Patient Name: SARAH BERNAL Date of : 1965 Reason for Exam: Exam Date: 12/10/2024 [id number] EST Report Status: Final Ordering Provider: SELF [...] recommended in 1 year. Mammo Location: [facility], [address] [place] [address], [address], . -------- FINAL REPOR T -------- Dictated By: Jessica Veliz Dictated Date: 12/10/2024 11:39 ET Assigned Physician: Jessica Veliz Reviewed and Electronically Signed By: Jessica Veliz Signed Date: 025 11:41 ET Workstation ID: [id number] Transcribed By: Self Edit Transcribed Date: 12/10/2024 11:39 ET TSH+Free T4 Reviewed date:11/28/2024 02:49:19 PM Interpretation: Performing Lab:[facility], [address] [place] [address], Phone - [phone], Director - [facility] Notes/Report: Test(s) 013976-Fkzauqsxxklhv Acid, Serum was developed and its performance characteristics determined by [employer]. It has not been cleared or approved by the Food and Drug Administration. TSH-ICMA 1.3 Reference Range: Non- Adult 0.450-4.500 First Trimester 0.100-4.000 Second Trimester 0.200-4.000 Third Trimester 0.300-4.500 Free T4 by Dialysis/[employer] Architect 1.5 This test was developed and its performance characteristics determined by [employer]. It has not been cleared or approved by the Food and Drug Administration. Reference Range: Pubertal Children and Adults: 0.8 - 1.7 Homocyst(e)ine-199058 Reviewed date:11/28/2024 02:49:01 PM Interpretation: Performing Lab:[facility] Lesa Sheehan [facility], Phone - [phone], Director - [facility] Notes/Report: Test(s) 023538-Lgiemcunjjhyl Acid, Serum was developed and its performance characteristics determined by [employer]. It has not been cleared or approved by the Food and Drug Administration. Homocyst(e)ine 15.0 0.0-14.5 umol/L Methylmalonic Acid, Serum-70 6961 Reviewed date:11/28/2024 02:49:10 PM Interpretation: Performing Lab:[facility] Lesa Sheehan [facility], [place], Phone - [phone], Director [facility] Notes/Report: Test(s) 415550-Jojjyrfmfdjqi Acid, Serum was developed and its performance characteristics determined by [facility]. It has not been cleared or approved by the Food and Drug Administration. Methylmalonic Acid, Serum 163 0-378 nmol/L Lipid Panel-841891 Reviewed date:01/07/2025 01:45:08 PM Interpretation: Performing Lab:[facility] [address], Phone - [phone], Director - [facility] Notes/Report: Test(s) 897203-Iqxecvtfiklpj Acid, Serum was developed and its performance characteristics determined by [facility]. It has not been cleared or approved by the Food and Drug Administration. Cholesterol, Total 262 100-199 mg/dL Triglycerides 133 0-149 mg/dL HDL Cholesterol 78 >39 mg/dL VLDL Cholesterol Delio 23 5-40 mg/dL LDL Chol Calc (NIH) 161 0-99 mg/dL Hemoglobin T7r-277638 Reviewed date:11/28/2024 02:49:30 PM Interpretation: Performing Lab:[facility] [address], Phone - [phone], Director - [facility] Notes/Report: Test(s) 619778-Hpvzbzkuxvvcw Acid, Serum was developed and its performance characteristics determined by [facility]. It has not been cleared or approved by the Food and Drug Administration. Hemoglobin A1c 5.7 4.8-5.6 % . Prediabetes: 5.7 - 6.4 Diabetes: >6.4 Glycemic control for adults with diabetes: <7.0 Vitamin B12 and Folate-70420 0 Reviewed date:11/28/2024 02:48:50 PM Interpretation: Performing Lab:[facility] [address], Phone - [phone], Director - [facility] Notes/Report: Test(s) 498787-Ddwhsdijdzamw Acid, Serum was developed and its performance characteristics determined by [facility]. It has not been cleared or approved by the Food and Drug Administration. Vitamin B12 492 321-3878 pg/mL Folate (Folic Acid), Serum 14.2 >3.0 [...] HCl 25 MG TAKE 1 TABLET BY [facility] ONCE DAILY WITH 50 MG TABLET 90; [...] Administered COVID Moderna Unknown 11/18/2021 Administered Flublok 30234 IM Intramuscular 11/14/2024 Administered Fluzone QD IM [...] Status Risk Notes Problem Iron deficiency anemia (43255850) Iron deficiency anemia, unspecified (D50.9) Active confirmed Problem Vitamin D deficiency (84241820) Vitamin D deficiency, unspecified (E55.9) Active confirmed Problem Morbid obesity (576308050) Morbid (severe) obesity due to excess calories (E66.01) Active confirmed Problem Mixed hyperlipidemia (553745156) Mixed hyperlipidemia (E78.2) Active confirmed Problem Major depression, single episode (57356528) Major depressive disorder, single episode, unspecified (F32.9) Active confirmed Problem Generalized anxiety disorder (77781461) Generalized anxiety disorder (F41.1) Active confirmed Problem Essential hypertension (71589277) Essential (primary) hypertension (I10) Active confirmed Problem Psoriasis (4726241) Psoriasis, unspecified (L40.9) Active confirmed Problem Idiopathic urticaria (88947309) Idiopathic urticaria (L50.1) Active confirmed Problem History of excision of intestinal structure (766166279) Acquired absence of other specified parts of digestive tract (Z90.49) Active confirmed Vital Signs Heart Rate 98 /min 11/14/2024 Temperature 97.4 degrees Fahrenheit 11/14/2024 Oximetry 97 % 11/14/2024 Blood pressure diastolic 78 mm Hg 11/14/2024 Height 62 in 11/14/2024 Blood pressure systolic 120 mm Hg 11/14/2024 Weight 222.2 lbs 11/14/2024 BMI 40.64 kg/m2 11/14/2024 Encounters Encounter Location Date Provider Diagnosis [facility] [address] [facility] [address] [place] [address] 11/14/2024 Toro Cabrera Essential (primary) hypertension I10 [...] abdominal hernia without obstruction or gangrene K45.8 [facility] [address] [facility] [address] [place] [address] 01/07/2025 MARY JOYCE Mixed hyperlipidemia E78.2 [facility] [address] [facility] [address] [place] [address] 10/21/[address] [place] [address] 10/21/[address] [place] [address] 11/15/2024 MARY JOYCE Assessments Encounter Date Diagnosis [...] FERRITIN 08/12/2022 IRON & TIBC 08/12/2022 Lipid Panel-057408 01/07/2025 Future Test Test Name Order Date TSH-[id number] 03/22/2024 Lipid Panel-118622 03/22/2024 Basic Metabolic Panel [phone] 25-Hydroxyvitamin D LCMS D2+D3-978480 Hemoglobin A1c 03/22/2024 Next Appt Details Provider Name:Toro mo, 11/12/2025 08:30:00 AM, [address] [place] [address], [phone], Insurance Providers Payer Name Payer Address Payer Phone Subscriber Number Group Number Insured Name Patient Relationship to Insured Coverage Start Date Coverage End Date [facility] [address] [place] [address] [id number] Sarah Bernal Self - patient is [...]
== END 2025-07-17 08:56 | disposition home or self-care (01) ==
PROVIDERS: PCP Hospitalist; Visit Provider Internal Medicine Rheumatology
DX: L40.50 Arthropathic psoriasis, unspecified (principal); Z79.899 Other long term (current) drug therapy; R74.01 Elevation of levels of liver transaminase levels
CPT/HCPCS: 99214

== ENCOUNTER 2025-11-04 08:38 | Outpatient (REF) | payer BC, SELFPAY ==
--- OUTSIDE RECORDS SUMMARY | 2025-11-04 10:29 | XMS_ITS | Patient Health Record ---
Author Organization [employer] Address [address] [facility] [address] [place] [address] Care Team Providers Care Diet Therapist Name Role Phone ISIAH MARY Primary Care Provider [phone] Toro Cabrera Unavailable [phone] Allergies Allergen (clinical drug ingredient) Drug/Non Drug Allergy documented on EMR Reaction Allergy Type Onset Date Status NKDA (uncoded) Unknown Allergy Activ e Results Component Value Reference Range Notes US ELASTOGRAPHY PARENCHYMA Reviewed date:08/21/2025 09:01:02 AM Interpretation: Performing Lab: Notes/Report: Note See Note [facility], a member of [facility] Patient Name: SARAH BERNAL Date of : 1965 Reason for Exam: elevation of levels of liver transaminase level. other [facility] (current) drug therapy Exam Date: 08/21/2025 [id number] EST Report Status: Final Ordering Provider: GRIS MCCORMACK PCP: MARY JOYCE EXAMINATION: HEPATIC ELASTOGRAPHY CLINICAL INFORMATION: Elevated liver funct ion testing. Long-term drug therapy. Elevated transaminases COMPARISON: None. TECHNIQUE: Elastography of the liver was performed. Multiple measurements were obtained targeting areas which exclude large vessels. Shearwave elastograp hy of the liver was performed. Shearwave sampling of the liver was performed multiple times targeting areas which exclude large vessels. FINDINGS: QUALITY: There is a significant variation in the measurements. Elastography Vmean: 1.18 m/s V IQR/Median = 33% The interquartile ra nge (IQR) contains the second and third quartiles, or the middle half of the data set Normal, F0 <1.35m/s Normal to mild, F1 1 .35 m/s to 1.66 m/s Mild to moderate, F2 1.66 m/s to 1.77 cm/s Moderate to severe, F3 1.77 m/s to 1.99 m/s Cirrhosis, F4 >1.99 m/s LIVER: No suspicious focal lesion. IMPRESSION: Elastography was performed and yields a mean score of 1.18 m/s. This correlates with a Metavir score of F0, no fibrosis There is significant variation among the measurements obtained which reduces the accuracy The variability betw een consecutive liver stiffness acquisitions, assessed by means of the interquartile range?to-median ratio, is the most important quality criterion; when this ratio is higher than 30% for measurements given in kilopascals or higher than 15% for measurements given in meters per second, the accuracy of the technique is reduced. A standard deviation (Std) of 30% or less of the mean value is indicative of an acquisition of good quality. -------- FINAL REPOR T -------- Dictated By: Ruben Velazquez Dictated Date: 08/21/2025 08:13 ET Assigned Physician: Ruben Vega Reviewed and Electronically Signed By: Ruben Vega Signed Date: 025 08:16 ET Workstation ID: [id number] Transcribed By: Self Edit Transcribed Date: 08/21/2025 08:13 ET TSH+Free T4 Reviewed date:11/28/2024 02:49:19 PM Interpretation: Performing Lab:[facility], [address] [place] [address], [place], Phone - [phone], Director - [facility] Notes/Report: Test(s) 126118-Cbayyiwhdbhod Acid, Serum was developed and its performance characteristics determined by [employer]. It has not been cleared or approved by the Food and Drug Administration. TSH-ICMA 1.3 Reference Range: Non- Adult 0.450-4.500 First Trimester 0.100-4.000 Second Trimester 0.200-4.000 Third Trimester 0.300-4.500 Free T4 by Dialysis/[employer] 1.5 This test was developed and its performance characteristics determined by [employer]. It has not been cleared or approved by the Food and Drug Administration. Reference Range: Pubertal Children and Adults: 0.8 - 1.7 Homocyst(e)ine-129099 Reviewed date:11/28/2024 02:49:01 PM Interpretation: Performing Lab:[facility] [address] [place] [address], Phone - [phone], Director - [facility] Notes/Report: Test(s) 681522-Mexhrchdyrrrx Acid, Serum was developed and its performance characteristics determined by [facility]. It has not been cleared or approved by the Food and Drug Administration. Homocyst(e)ine 15.0 0.0-14.5 umol/L Methylmalonic Acid, Serum-70 6961 Reviewed date:11/28/2024 02:49:10 PM Interpretation: Performing Lab:[facility] [address] [place] [address], Phone - [phone], Director - [facility] Notes/Report: Test(s) 725286-Nvrurzqoutfie Acid, Serum was developed and its performance characteristics determined by [facility]. It has not been cleared or approved by the Food and Drug Administration. Methylmalonic Acid, Serum 163 0-378 nmol/L Lipid Panel-049643 Reviewed date:01/07/2025 01:45:08 PM Interpretation: Performing Lab:[facility] [place] [address] [place] [address], Phone - [phone], [facility] Notes/Report: Test(s) 126575-Sddrgisdgllrd Acid, Serum was developed and its performance characteristics determined by [facility]. It has not been cleared or approved by the Food and Drug Administration. Cholesterol, Total 262 100-199 mg/dL Triglycerides 133 0-149 mg/dL HDL Cholesterol 78 >39 mg/dL VLDL Cholesterol Delio 23 5-40 mg/dL LDL Chol Calc ([facility]) 161 0-99 mg/dL Hemoglobin F1y-088040 Reviewed date:11/28/2024 02:49:30 PM Interpretation: Performing Lab:[facility] [address] [place] [address], Phone - [phone], Director - [facility] Notes/Report: Test(s) 701885-Uqdeajandnifz Acid, Serum was developed and its performance characteristics determined by [facility]. It has not been cleared or approved by the Food and Drug Administration. Hemoglobin A1c 5.7 4.8-5.6 % . Prediabetes: 5.7 - 6.4 Diabetes: >6.4 Glycemic control for adults with diabetes: <7.0 Vitamin B12 and Folate-21978 0 Reviewed date:11/28/2024 02:48:50 PM Interpretation: Performing Lab:[facility], [address], [place], Phone - [phone], Director - [facility] Notes/Report: Test(s) 509288-Esrhcvrjzmivr Acid, Serum was developed and its performance characteristics determined by [facility]. It has not been cleared or approved by the Food and Drug Administration. Vitamin B12 566 599-0647 pg/mL Folate (Folic Acid), Serum 14.2 >3.0 ng/mL A serum folate concentration of less than 3.1 ng/mL is considered to represent clinical deficiency. MG MAMMO DIGITAL SCREENING W JESUKodi MARQUEZAT Reviewed date:12/10/2024 03:24:59 PM Interpretation: Performing Lab: Notes/Report: Note See Note [facility], a member of [employer] Patient Name: SARAH BERNAL Date of : 1965 Reason for Exam: Exam Date: 12/10/2024 [id number] EST Report Status: Final Ordering Provider: SELF [...] is recommended in 1 year. Mammo Location: [facility], [address] [place] [address], [address], . -------- FINAL REPOR T -------- Dictated By: Jessica Veliz Dictated Date: 12/10/2024 11:39 ET Assigned Physician: Jessica Veliz Reviewed and Electronically Signed By: Jessica Veliz Signed Date: 025 11:41 ET Workstation ID: [id number] Transcribed By: Self Edit Transcribed Date: 12/10/2024 11:39 ET Reason For Referral No Information Medications Medication [...] a day; Duration: 30 day(s) 02/07/2018 Active Garcinia Cambogia-Chromium 500-200 MG-MCG as directed Orally 02/07/2018 Not-Takin g Bactrim DS 800-160 MG 1 tablet Orally Tw ice a day; Duration: 3 day(s) 04/09/2021 Not-Taki ng Enbrel 50 MG/ML 1 mL Subcutaneous [...] 25 MG TAKE 1 TABLET BY [facility] ONCE DAILY WITH 50 MG TABLET 90; [...] Administered COVID Moderna Unknown 11/18/2021 Administered Flublok 74099 IM Intramuscular 11/14/2024 Administered Fluzone QD IM [...] Status Risk Notes Problem Iron deficiency anemia (52025867) Iron deficiency anemia, unspecified (D50.9) Active confirmed Problem Vitamin D deficiency (50632610) Vitamin D deficiency, unspecified (E55.9) Active confirmed Problem Morbid obesity (788309352) Morbid (severe) obesity due to excess calories (E66.01) Active confirmed Problem Mixed hyperlipidemia (685402624) Mixed hyperlipidemia (E78.2) Active confirmed Problem Major depression, single episode (97991645) Major depressive disorder, single episode, unspecified (F32.9) Active confirmed Problem Generalized anxiety disorder (55732072) Generalized anxiety disorder (F41.1) Active confirmed Problem Essential hypertension (76558267) Essential (primary) hypertension (I10) Active confirmed Problem Psoriasis (9953175) Psoriasis, unspecified (L40.9) Active confirmed Problem Idiopathic urticaria (35217872) Idiopathic urticaria (L50.1) Active confirmed Problem History of excision of intestinal structure (562378141) Acquired absence of other specified parts of digestive tract (Z90.49) Active confirmed Vital Signs Heart Rate 98 /min 11/14/2024 Temperature 97.4 degrees Fahrenheit 11/14/2024 Oximetry 97 % 11/14/2024 Blood pressure diastolic 78 mm Hg 11/14/2024 Height 62 in 11/14/2024 Blood pressure systolic 120 mm Hg 11/14/2024 Weight 222.2 lbs 11/14/2024 BMI 40.64 kg/m2 11/14/2024 Encounters Encounter Location Date Provider Diagnosis [facility] [address] [address] 11/14/2024 Toro Cabrera Essential (primary) hypertension I10 [...] abdominal hernia without obstruction or gangrene K45.8 [facility] [address] [facility] [address] [place] [address] 01/07/2025 MARY JOYCE Mixed hyperlipidemia E78.2 [facility] [address] [facility] [address] [place] [address] 11/15/2024 MARY JOYCE Assessments Encounter Date Diagnosis [...] Psoriatic arthritis. She follows up with Dr. Mccormack and it is under control. fatigue: - [...] Psoriatic arthritis. She follows up with Dr. Mccormack and it is under control. fatigue: - [...] Psoriatic arthritis. She follows up with Dr. Mccomrack and it is under control. fatigue: - [...] Psoriatic arthritis. She follows up with Dr. Mccormack and it is under control. fatigue: - [...] Psoriatic arthritis. She follows up with Dr. Mccormack and it is under control. fatigue: - [...] Psoriatic arthritis. She follows up with Dr. Mccormack and it is under control. fatigue: - [...] Psoriatic arthritis. She follows up with Dr. Mccormack and it is under control. fatigue: - [...] Psoriatic arthritis. She follows up with Dr. Mccormack and it is under control. fatigue: - [...] Psoriatic arthritis. She follows up with Dr. Mccormack and it is under control. fatigue: - [...] Psoriatic arthritis. She follows up with Dr. Mccormack and it is under control. fatigue: - [...] FERRITIN 08/12/2022 IRON & TIBC 08/12/2022 Lipid Panel-738514 01/07/2025 Future Test Test Name Order Date [id number] 03/22/2024 Lipid Panel-971397 03/22/2024 Basic Metabolic Panel [phone] 25-Hydroxyvitamin D LCMS D2+D3-259349 Hemoglobin A1c 03/22/2024 Next Appt Details Provider Name:Toro mo, 11/12/2025 08:30:00 AM, [address] [place] [address], [phone], Insurance Providers Payer Name Payer Address Payer Phone Subscriber Number Group Number Insured Name Patient Relationship to Insured Coverage Start Date Coverage End Date [facility] [address] [place] [address] [id number] Sarah Bernal Self - patient is the insured 2 Medical (General) History Medical History History ICD Code Depression Diverticulitis and status post colectomy in [address] Mccormack atypia on breast biopsy followed by Dorys lizarraga Surgeon Dr. 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
--- OUTSIDE RECORDS SUMMARY | 2025-11-04 10:29 | XMS_ITS | Encounter Summary ---
Author Organization [facility] Prior to 09/06/2024 Address [address] [place] [address] Care Team Providers Care Grill Associate Name Role Phone Adin Hoffman MD Primary Care Provider Alexandru andino Encounter Details Date Type Department Care Team Description 05/16/2019 Release of Information Medical Records [address] [place] [id number] Abstract, Provider Social History Tobacco Use Types [...] on filedocumented in this encounter Care Teams Grill Associate Relationship Specialty Start Date End Date Adin Hoffman MD PCP - General Internal Medicine 10/20/16 documented as of this encounter
--- OUTSIDE RECORDS SUMMARY | 2025-11-04 10:29 | XMS_ITS | Encounter Summary ---
Author Organization [employer] [facility] Prior to 09/06/2024 Address [address] [place] [address] Care Team Providers Care Anger Control Counselor Name Role Phone Adin Hoffman MD Primary Care Provider Unavailab le Reason for Visit * Reason Onset Date Comments TEST RESULTS 12/13/2019 MRI Result Encounter Details Date Type Department Care Team Description 12/13/2019 Telephone General Surgery [address] [place] [address] Keren Ureña NP TEST RESULTS (MRI Result) Social History Tobacco Use Types Packs/Day Years Used Date Smoking Tobacco: Former Smokeless Tobacco: Never Alcohol Use Standard Drinks/Week Comments Yes 0 (1 standard drink = 0.6 oz pur e alcohol) rarely Sex Assigned at Date Recorded Not on file documented as of this encounter Miscellaneous Notes * Telephone Encounter - Leigh Rodriguez M.A. - 12/13/2019 2:49 PM EST Call Pt with Neg Mri result per Keren Ureña documented in this encounter Plan of Treatment Not on file documented as of this encounter Visit Diagnoses Not on filedocumented in this encounter Care Teams Anger Control Counselor Relationship Specialty Start Date End Date Adin Hoffman MD PCP - General Internal Medicine 10/20/16 documented as of this encounter
--- OUTSIDE RECORDS SUMMARY | 2025-11-04 10:29 | XMS_ITS | Clinical Summary ---
Author Organization [facility] Address [address] [place] [address] Care Team Providers Care Forestry Hunter Name Role Phone Adin Hoffman MD Primary Care Provider Allergies No known active allergies Medications adalimumab [...] Encounters Date Type Department Care Team Description 08/21/2025 7:10 AM EDT - 08/21/2025 11:59 PM EDT Hospital Encounter 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 Discharge Disposition: Home or Self Care from Last 3 Months Surgical History Surgery Date Site/Laterality Comments OTHER SURGICAL HISTORY december 2015 PROCEDURE: [place] LAPS COLECTOMY TOT W/O PRCTECT W/ILEOST/ILEOPXTS; COMMENT: had ostomy reversed in may 2016 BREAST BIOPSY 04/06/2016 Left PROCEDURE: [place] BX BREAST NEEDLE CORE W/O IMAGING GUIDANCE [...] on file Sexual Orientation Not on file Plan of Treatment Health Maintenance Due Date Last Done Comments Colorectal Cancer Screening: Colonoscopy 1965 Hepatitis B Vaccines (1 of 3 - 19+ 3-dose series) 1985 Cervical Cancer Screening: Pap Smear 1987 Pneumococcal Vaccine: 50+ Years (1 of 1 - PCV) 2016 RSV Immunization Adult Patients (1 - Risk 50-74 years 1-dose series) 2016 Zoster Vaccines (1 of 2) 2016 Cholesterol Screening (Lipid Panel) 11/24/2021 HIV Screening 11/24/2021 Hepatitis C Screening 11/24/2021 Social Influencers of Health Screening 11/24/2021 Depression Screening 11/06/2024 COVID-19 Vaccine ( season) 2025 11/18/2021, 12/10/2020, 11/12/2020 Influenza Vaccine (#1) 2025 , 11/21/2022, 09/20/2017 Hypertension/CHF/CAD Annual BMP Blood Test 08/21/2025 DTaP,Tdap,and Td Vaccines (2 - Td or Tdap) 09/12/2026 09/12/2016 Breast Cancer Screening 12/10/2026 12/10/19, 12/06/2023, 11/23/2022, Additional history exists HIB Vaccines [...] Procedure Name Priority Date/Time Associated Diagnosis Comments US ELASTOGRAPHY PARENCHYMA Routine 08/21/2025 7:37 AM EDT Elevation of levels of liver transaminase levels Other residential (current) drug therapy MG MAMMO DIGITAL SCREENING W JESU BILAT Routine 12/10/2024 9:03 AM EST Encounter for screening mammogram for breast cancer from Last 3 Months or Most Recently Relevant to Health Maintenance Results * US Elastography Parenchyma (08/21/2025 7:37 AM EDT) Anatomical Region Laterality Modality Body Ultrasound 08/21/2025 8:13 AM EDT Impressions 08/21/2025 8:16 AM EDT Elastography was performed and yields a mean score of 1.18 m/s. This correlates with a Metavir score of F0, no fibrosis There is significant variation among the measurements obtained which reduces the accuracy The variability between consecutive liver stiffness acquisitions, assessed by means [...] an acquisition of good quality. -------- FINAL REPORT -------- Dictated By: Ruben Vega Dictated Date: 08/21/2025 08:13 ET Assigned Physician: Ruben Vega Reviewed and Electronically Signed By: Ruebn Vega Signed Date: 08/21/2025 08:16 ET Workstation ID: [id number] Transcribed By: Self Edit Transcribed Date: 08/21/2025 08:13 ET Narrative 08/21/2025 8:16 AM EDT EXAMINATION: HEPATIC ELASTOGRAPHY CLINICAL INFORMATION: Elevated liver function testing. Long-term drug therapy. Elevated transaminases COMPARISON: None. TECHNIQUE: Elastography of the liver was performed. Multiple measurements were obtained targeting areas which exclude large vessels. Shearwave elastography of the liver was performed. Shearwave sampling of the liver was performed multiple times targeting areas which exclude large vessels. FINDINGS: QUALITY: There is a significant variation in the measurements. Elastography Vmean: 1.18 m/s V IQR/Median = 33% The interquartile range (IQR) contains the second and third quartiles, or the middle half of the data set Normal, F0 <1.35m/s Normal to mild, F1 1.35 m/s to 1.66 m/s Mild to moderate, F2 1.66 m/s to 1.77 cm/s Moderate to severe, F3 1.77 m/s to 1.99 m/s Cirrhosis, F4 >1.99 m/s LIVER: No suspicious focal lesion. Procedure Note Ruben Vega MD - 08/21/2025 EXAMINATION: HEPATIC ELASTOGRAPHY CLINICAL INFORMATION: Elevated liver function testing. Long-term drug therapy. Elevatedtransaminases COMPARISON: None. TECHNIQUE: Elastography of the liver was performed. Multiple measurements wereobtained targeting areas which exclude large vessels. Shearwave elastography of the liver was performed. Shearwave sampling ofthe liver was performed multiple times targeting areas which exclude largevessels. FINDINGS: QUALITY: There is a significant variation in the measurements. Elastography Vmean: 1.18 m/s V IQR/Median = 33% The interquartile range (IQR) contains the second and third quartiles, orthe middle half of the data set Normal, F0 <1.35m/s Normal to mild, F1 1.35 m/s to 1.66 m/s Mild to moderate, F2 1.66 m/s to 1.77 cm/s Moderate to severe, F3 1.77 m/s to 1.99 m/s Cirrhosis, F4 >1.99 m/s LIVER: No suspicious focal lesion. IMPRESSION: Elastography was performed and yields a mean score of 1.18 m/s. This correlates with a Metavir score of F0, no fibrosis There is significant variation among the measurements obtained whichreduces the accuracy The variability between consecutive liver stiffness acquisitions, assessedby means of the interquartile range?to-median ratio, is the most importantquality criterion; when this ratio is higher than 30% for measurementsgiven in kilopascals or higher than 15% for measurements given in metersper second, the accuracy of the technique is reduced. A standard deviation (Std) of 30% or less of the mean value is indicativeof an acquisition of good quality. -------- FINAL REPORT -------- Dictated By: Ruben Vega Dictated Date: 08/21/2025 08:13 ET Assigned Physician: Ruben Vega Reviewed and Electronically Signed By: Ruben Vega Signed Date: 08/21/2025 08:16 ET Workstation ID: [id number] Transcribed By: Self Edit Transcribed Date: 08/21/2025 08:13 ET us Clay Christine Jimenes MD IMG US PROCEDURES Final R esult * MG Mammo Digital Screening w Jesu bilat (12/10/2024 9:03 AM EST) Anatomical Region Laterality Modality Breast Bilateral Mammography 12/10/2024 11:3 9 AM EST Impressions 12/10/2024 11:41 AM EST No evidence of breast malignancy. BI-RADS CATEGORY: 1 - NEGATIVE RECOMMENDATION: Screening bilateral mammogram is recommended in 1 year. Mammo Location: [facility], [address] [place] [address], [address], . -------- FINAL REPORT -------- Dictated By: Jessica Veliz Dictated Date: 12/10/2024 11:39 ET Assigned Physician: Jessica Veliz Reviewed and Electronically Signed By: Jessica Veliz Signed Date: 12/10/2024 11:41 ET Workstation ID: [id number] Transcribed By: Self Edit Transcribed Date: 12/10/2024 [...] year. Mammo Location: [facility], [address] [place] [address], [address], . -------- FINAL REPORT -------- Dictated By: Jessica Veliz Dictated Date: 12/10/2024 11:39 ET Assigned Physician: Jessica Veliz Reviewed and Electronically Signed By: Jessica Veliz Signed Date: 12/10/2024 11:41 ET Workstation ID: [id number] Transcribed By: Self Edit Transcribed Date: 12/10/2024 11:39 ET us Self Referral Sppl IMG BI PROCEDURES Final Resul t from Last 3 Months or Most Recently Relevant to Health Maintenance Insurance [facility]) Care Teams Forestry Hunter Relationship Specialty Start Date End Date Adin Hoffman MD [address] [place] [address] PCP - General Internal Medicine 10/20/16
[2025-11-04 14:06] LABS: MANUAL DIFF FLAG NO
[2025-11-04 14:09] LABS: Hematocrit 37.6 % (37.0-47.0); Hemoglobin 12.1 g/dl (12.0-16.0); Imm Gran Abs Auto 0.03 X10*3/uL (0.00-0.03); Imm Gran Pct Auto 0.5 % (0.0-0.4); Lymphocytes Absolute Auto 1.5 X10*3/uL (1.2-4.9); Mean Corpuscular HGB Conc 32.2 g/dl (31.0-35.0); Mean Corpuscular Hemoglobin 27.6 pg (27.0-33.0); Mean Corpuscular Volume 85.8 fL (80.0-98.0); NRBC Abs Auto 0.000 X10*3/uL (0.0-0.012); NRBC Pct Auto 0.0 /100WBC (0.0-0.2); Platelet Count 267 X10*3/uL (160-400); Red Blood Count 4.38 X10*6/uL (4.20-5.50); White Blood Count 6.6 X10*3/uL (4.8-10.8)
[2025-11-04 14:39] LABS: Alanine Aminotransferase 42 U/L (0-31); Aspartate Amino Transferase 31 U/L (5-31); Estimated Glomerular Filt Rate 51
== END 2025-11-04 08:39 | disposition home or self-care (01) ==
LOC: HO.HKASLDS 08:38
PROVIDERS: PCP Hospitalist; Visit Provider Internal Medicine Rheumatology
DX: L40.50 Arthropathic psoriasis, unspecified (principal); Z79.899 Other long term (current) drug therapy
CPT/HCPCS: 36415; 82565; 84450; 84460; 85025; 85652; 86140

== ENCOUNTER 2025-11-05 07:58 | Outpatient (AMB) | payer BC, SELFPAY ==
--- OUTSIDE RECORDS SUMMARY | 2025-11-05 08:02 | XMS_ITS | Clinical Summary ---
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 Discharge Disposition: Home or Self Care from Last 3 Months Surgical History Surgery Date Site/Laterality Comments OTHER SURGICAL HISTORY december 2015 PROCEDURE: [place] LAPS COLECTOMY TOT W/O PRCTECT W/ILEOST/ILEOPXTS; COMMENT: had ostomy reversed in may 2016 BREAST BIOPSY 04/06/2016 Left PROCEDURE: [place] BX BREAST NEEDLE CORE W/O IMAGING GUIDANCE [...] of levels of liver transaminase levels Other penitentiary (current) drug therapy MG MAMMO DIGITAL SCREENING [...] Signed Date: 08/21/2025 08:16 ET Workstation ID: [id number] Transcribed By: Self Edit Transcribed Date: 08/21/2025 [...] Signed Date: 08/21/2025 08:16 ET Workstation ID: [id number] Transcribed By: Self Edit Transcribed Date: 08/21/2025 [...] year. Mammo Location: [facility], [address] [place] [address], [address], . -------- FINAL REPORT -------- Dictated By: Jessica Veliz Dictated Date: 12/10/2024 11:39 ET Assigned Physician: Jessica Veliz Reviewed and Electronically Signed By: Jessica Veliz Signed Date: 12/10/2024 11:41 ET Workstation ID: [id number] Transcribed By: Self Edit Transcribed Date: 12/10/2024 [...] year. Mammo Location: [facility], [address] [place] [address], [address], . -------- FINAL REPORT -------- Dictated By: Jessica Veliz Dictated Date: 12/10/2024 11:39 ET Assigned Physician: Jessica Veliz Reviewed and Electronically Signed By: Jessica Veliz Signed Date: 12/10/2024 11:41 ET Workstation ID: [id number] Transcribed By: Self Edit Transcribed Date: 12/10/2024 11:39 ET us Self Referral Sppl IMG BI PROCEDURES Final Resul t from Last 3 Months or Most Recently Relevant to Health Maintenance Insurance [facility]) Care Teams Pharmacovigilance Scientist Relationship Specialty Start Date End Date Adin Hoffman MD [address] [place] [address] PCP - General Internal Medicine 10/20/16
--- OUTSIDE RECORDS SUMMARY | 2025-11-05 08:02 | XMS_ITS | Patient Health Record ---
Author Organization [employer] Address [address] [place] [address] Care Team Providers Care Waistband Setter Lockstitch Name Role Phone ISIAH MARY Primary Care Provider Toro Cabrera Unavailable [phone] Allergies Allergen (clinical drug ingredient) Drug/Non Drug Allergy documented on EMR Reaction Allergy Type Onset Date Status NKDA (uncoded) Unknown Allergy Activ e Results Component Value Reference Range Notes US ELASTOGRAPHY PARENCHYMA Reviewed date:08/21/2025 09:01:02 AM Interpretation: Performing Lab: Notes/Report: Note See Note [facility], a member of [facility] Patient Name: SARAH BERNAL Date of : 1965 Reason for Exam: elevation of levels of liver transaminase level. other mcfp (current) drug therapy Exam Date: 08/21/2025 [id number] EST Report Status: Final Ordering Provider: GRIS [...] Signed Date: 025 08:16 ET Workstation ID: [id number] Transcribed By: Self Edit Transcribed Date: 08/21/2025 08:13 ET TSH+Free T4 Reviewed date:11/28/2024 02:49:19 PM Interpretation: Performing Lab:[facility], [address] [place] [address], [place], Phone - [phone], Director - [facility] Notes/Report: Test(s) 157431-Topsxlziljfft Acid, Serum was developed and its performance characteristics determined by [employer]. It has not been cleared or approved by the Food and Drug Administration. TSH-ICMA 1.3 Reference Range: Non- Adult 0.450-4.500 First Trimester 0.100-4.000 Second Trimester 0.200-4.000 Third Trimester 0.300-4.500 Free T4 by Dialysis/Cost Engineer 1.5 This test was developed and its performance characteristics determined by [employer]. It has not been cleared or approved by the Food and Drug Administration. Reference Range: Pubertal Children and Adults: 0.8 - 1.7 Homocyst(e)ine-064980 Reviewed date:11/28/2024 02:49:01 PM Interpretation: Performing Lab:[facility] [address] [place] [address], Phone - [phone], Director - [facility] Notes/Report: Test(s) 973309-Oqeinjkxcgrxe Acid, Serum was developed and its performance characteristics determined by [facility]. It has not been cleared or approved by the Food and Drug Administration. Homocyst(e)ine 15.0 0.0-14.5 umol/L Methylmalonic Acid, Serum-70 6961 Reviewed date:11/28/2024 02:49:10 PM Interpretation: Performing Lab:[facility] [address] [place] [address], Phone - [phone], Director - [facility] Notes/Report: Test(s) 371634-Saolqxdgipscc Acid, Serum was developed and its performance characteristics determined by [facility]. It has not been cleared or approved by the Food and Drug Administration. Methylmalonic Acid, Serum 163 0-378 nmol/L Lipid Panel-897154 Reviewed date:01/07/2025 01:45:08 PM Interpretation: Performing Lab:[facility] [place] [address] [place] [address], Phone - [phone], [facility] Notes/Report: Test(s) 036015-Dxngwhihkzaoj Acid, Serum was developed and its performance characteristics determined by [facility]. It has not been cleared or approved by the Food and Drug Administration. Cholesterol, Total 262 100-199 mg/dL Triglycerides 133 0-149 mg/dL HDL Cholesterol 78 >39 mg/dL VLDL Cholesterol Delio 23 5-40 mg/dL LDL Chol Calc ([facility]) 161 0-99 mg/dL Hemoglobin G4h-167376 Reviewed date:11/28/2024 02:49:30 PM Interpretation: Performing Lab:[facility] [address] [place] [address], Phone - [phone], Director - [facility] Notes/Report: Test(s) 696587-Gfgtdjvpmkpmb Acid, Serum was developed and its performance characteristics determined by [facility]. It has not been cleared or approved by the Food and Drug Administration. Hemoglobin A1c 5.7 4.8-5.6 % . Prediabetes: 5.7 - 6.4 Diabetes: >6.4 Glycemic control for adults with diabetes: <7.0 Vitamin B12 and Folate-69849 0 Reviewed date:11/28/2024 02:48:50 PM Interpretation: Performing Lab:[facility], [address], [place], Phone - [phone], Director - [facility] Notes/Report: Test(s) 298941-Gamxxuugipitz Acid, Serum was developed and its performance characteristics determined by [facility]. It has not been cleared or approved by the Food and Drug Administration. Vitamin B12 052 091-1030 pg/mL Folate (Folic Acid), Serum 14.2 >3.0 ng/mL A serum folate concentration of less than 3.1 ng/mL is considered to represent clinical deficiency. MG MAMMO DIGITAL SCREENING W JESUKodi MARQUEZAT Reviewed date:12/10/2024 03:24:59 PM Interpretation: Performing Lab: Notes/Report: Note See Note [facility], a member of [employer] Patient Name: SARAH BERNAL Date of : 1965 Reason for Exam: Exam Date: 12/10/2024 [id number] EST Report Status: Final Ordering Provider: SELF [...] is recommended in 1 year. Mammo Location: [facility], [address] [place] [address], [address], . -------- FINAL REPOR T -------- Dictated By: Jessica Veliz Dictated Date: 12/10/2024 11:39 ET Assigned Physician: Jessica Veliz Reviewed and Electronically Signed By: Jessica Veliz Signed Date: 025 11:41 ET Workstation ID: [id number] Transcribed By: Self Edit Transcribed Date: 12/10/2024 [...] HCl 25 MG TAKE 1 TABLET BY [facility] ONCE DAILY WITH 50 MG TABLET 90; [...] Administered COVID Moderna Unknown 11/18/2021 Administered Flublok 50702 IM Intramuscular 11/14/2024 Administered Fluzone QD IM [...] Status Risk Notes Problem Iron deficiency anemia (64755345) Iron deficiency anemia, unspecified (D50.9) Active confirmed Problem Vitamin D deficiency (76023830) Vitamin D deficiency, unspecified (E55.9) Active confirmed Problem Morbid obesity (966509507) Morbid (severe) obesity due to excess calories (E66.01) Active confirmed Problem Mixed hyperlipidemia (125129851) Mixed hyperlipidemia (E78.2) Active confirmed Problem Major depression, single episode (33862968) Major depressive disorder, single episode, unspecified (F32.9) Active confirmed Problem Generalized anxiety disorder (87728661) Generalized anxiety disorder (F41.1) Active confirmed Problem Essential hypertension (12138364) Essential (primary) hypertension (I10) Active confirmed Problem Psoriasis (1588663) Psoriasis, unspecified (L40.9) Active confirmed Problem Idiopathic urticaria (59235552) Idiopathic urticaria (L50.1) Active confirmed Problem History of excision of intestinal structure (251797323) Acquired absence of other specified parts of digestive tract (Z90.49) Active confirmed Vital Signs Heart Rate 98 /min 11/14/2024 Temperature 97.4 degrees Fahrenheit 11/14/2024 Oximetry 97 % 11/14/2024 Blood pressure diastolic 78 mm Hg 11/14/2024 Height 62 in 11/14/2024 Blood pressure systolic 120 mm Hg 11/14/2024 Weight 222.2 lbs 11/14/2024 BMI 40.64 kg/m2 11/14/2024 Encounters Encounter Location Date Provider Diagnosis [facility] [address] [address] 11/14/2024 Toro Cabrera Essential (primary) hypertension I10 [...] abdominal hernia without obstruction or gangrene K45.8 [facility] [address] [facility] [place] [address] [place] [address] 01/07/2025 MARY JOYCE Mixed hyperlipidemia E78.2 [facility] [address] [facility] [address] [place] [address] 11/15/2024 MARY JOYCE Assessments Encounter Date Diagnosis [...] FERRITIN 08/12/2022 IRON & TIBC 08/12/2022 Lipid Panel-952322 01/07/2025 Future Test Test Name Order Date TSH-[id number] 03/22/2024 Lipid Panel-064256 03/22/2024 Basic Metabolic Panel [phone] 25-Hydroxyvitamin D LCMS D2+D3-290371 Hemoglobin A1c 03/22/2024 Next Appt Details Provider Name:Toro mo, 11/12/2025 08:30:00 AM, [address] [place] [address], [phone], Insurance Providers Payer Name Payer Address Payer Phone Subscriber Number Group Number Insured Name Patient Relationship to Insured Coverage Start Date Coverage End Date [facility] [address] [place] [address] [id number] Sarah Bernal Self - patient is [...]
[2025-11-05 08:05] VITALS: BP 130/90; PULSE 88; O2SAT 99; BMI 42.5
--- NOTE | 2025-11-05 08:05 | A.OFFVIS_ITS ---
Vital Signs 11/05/25 08:05 Height 5 ft 1 in Weight 224 lb 13.944 oz BMI 42.5 BP 130/90 H Blood Pressure Location Rt brachial Position Sitting Pulse 88 Pulse Source Pulse Oximeter Pulse Oximetry (%) 99 Oxygen Delivery Method Room Air Intake Visit Reasons: 3months Intake Note: Patient presents for PSA follow up. Accompanied by: Self / Same As Patient Allergies No Known Allergies Allergy (Verified 11/05/25 08:05) HPI HPI 3months: Details: She feels well. No recent infections. Psoriasis is controlled. No new joint symptoms. Morning stiffness is minutes. PFSH Surgical History H/O colectomy Family History Father Cancer Mother Kidney failure Social History Household Members: None Housing: House Alcohol intake: current Comment: OCC Patient Tobacco Use Status: Never used Tobacco Physical Exam Vital Signs: Last Vital Signs Pulse 88 11/05/25 08:05 BP 130/90 H 11/05/25 08:05 Pulse Ox 99 11/05/25 08:05 Oxygen Delivery Method Room Air 11/05/25 08:05 BMI result Body Mass Index 42.5 Const Other: General: Comfortable CVS: RRR Respiratory: clear to auscultation bilaterally. Good respiratory effort Skin: No lesions seen MSK: No tenderness of any joints. No synovitis. She has reduced mobility of bilateral wrists. Normal range of motion of shoulders and elbows. Knee flexion right is 80 degrees and left is 90. Bilateral hypertrophy noted on knees. Assessment & Plan Assessment & Plan (1) Psoriatic arthritis: Comment: In remission on enbrel. 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 Improving. ? Hepatic steatosis versus drug-induced (enbrel). US liver with elastography 08/2025 was performed at [facility] but I do not have the report. Code(s): R74.01 - Elevation of levels of liver transaminase levels Category: Medical Plan: I will request report of US liver with elastography from [facility]. Continue Enbrel as above She will avoid Tylenol, alcohol and NSAIDs Medications: Refilled etanercept Inject once weekly subcutaneous 50 mg subcut QWEEK 4 mL 5RF Coding Level of Care Code Est Pt Level 4 (22176) Add On Problem Visit Only Diagnoses Psoriatic arthritis L40.50 Other shelter (current) drug therapy Z79.899 Transaminitis R74.01
== END 2025-11-05 08:35 | disposition home or self-care (01) ==
LOC: HO.RHES 07:59
PROVIDERS: PCP Hospitalist; Visit Provider Internal Medicine Rheumatology
DX: L40.50 Arthropathic psoriasis, unspecified (principal); Z79.899 Other long term (current) drug therapy; R74.01 Elevation of levels of liver transaminase levels
CPT/HCPCS: 99214